=== PATIENT | male | born 1965 | race Caucasian/White ===

== ENCOUNTER 2018-09-23 17:33 | Emergency (ER) | payer MEDICARE, MEDICAID ==
[~2018-09-23] VITALS: Ht 180.3 cm; Wt 171.8 kg
[~2018-09-23 17:33] MED LIST: /CELE20CA; /DULO30CA; AMRIX; LIDO5DIS; NEUR600T; PRIL20CA; RYZOLT
[2018-09-23] MEDS ORDERED: BISO5TAB5 (17:48)
[2018-09-23] MEDS ORDERED: TRAM50TA2 (17:48)
[2018-09-23] MEDS ORDERED: CELE1CAP9 (17:48)
[2018-09-23] MEDS ORDERED: DESV50TA3 (17:48)
[2018-09-23] MEDS ORDERED: ACETAMINOPHEN 325 MG TAB PO ONE (18:15)
[2018-09-23 19:05] LABS: INFLUENZA A AMPLIFICATION POSITIVE (NEGATIVE); INFLUENZA B AMPLIFICATION NEGATIVE (NEGATIVE)
[2018-09-23] MEDS ORDERED: OSEL75CA PO (19:16)
[2018-09-23 19:26] VITALS: BP 154/89
== END 2018-09-23 19:30 | disposition home or self-care (01) ==
LOC: M ED 17:33
DX: J09.X2 Influenza due to identified novel influenza A virus with other respiratory manifestations (principal); I10 Essential (primary) hypertension; F17.200 Nicotine dependence, unspecified, uncomplicated; Z79.899 Other long term (current) drug therapy

== ENCOUNTER → 2019-04-10 | Outpatient (CLI) | payer MEDICARE, MEDICAID ==
[~2019-04-10] MED LIST changes: -/CELE20CA; -/DULO30CA; +BISO5TAB14; +CELE1CAP4; +CELE1CAP9; +CYMB1CAP5; +DESV50TA3; +OSEL75CA PO; +TRAM50TA2
--- NOTE | 2019-04-27 11:42 | ECWPNPC ---
PATIENT NAME: RASHEL HILL : 1965 GENDER: MALE VISIT DATE: 04/10/2019 DISCHARGE DATE: 04/10/19 1020 VISIT LOCKED DATE TIME: PHYSICIAN: JELENA BAILEY MD RESOURCE: JELENA BAILEY MD DISCLAIMER : THIS IS A VISIT SUMMARY EXTRACTED FROM THE [facility] CHART. IT IS NOT A COPY OF THE [facility] PROGRESS NOTE. MTDD
== END ==
LOC: M PAIN 09:00
PROVIDERS: ATTEND Anesthesiology
DX: M79.18 Myalgia, other site (principal); M54.5 Low back pain; G89.29 Other chronic pain; K21.9 Gastro-esophageal reflux disease without esophagitis; I10 Essential (primary) hypertension; E78.5 Hyperlipidemia, unspecified; Z86.59 Personal history of other mental and behavioral disorders; G47.30 Sleep apnea, unspecified; F17.210 Nicotine dependence, cigarettes, uncomplicated; E66.01 Morbid (severe) obesity due to excess calories; Z68.43 Body mass index [BMI] 50.0-59.9, adult; Z79.899 Other long term (current) drug therapy

== ENCOUNTER → 2019-04-11 | Outpatient (CLI) | payer MEDICARE ==
[~2019-04-11] MED LIST changes: -BISO5TAB14; +BISO5TAB9
--- NOTE | 2019-04-11 14:17 | REPVR ---
PROCEDURE INFORMATION: Exam: MR Lumbar Spine Without Contrast. Exam date and time: 04/11/2019 11:50 AM Clinical history: 54 years old, male; Low back pain; Additional info: Low back pain, lumbago TECHNIQUE: Imaging protocol: Multiplanar magnetic resonance images of the lumbar spine without intravenous contrast. COMPARISON: No relevant prior studies available. FINDINGS: Vertebrae: The lumbar vertebral bodies are normal in height , signal intensity and alignment.No acute fracture or dislocation is seen.There is a normal proportion of hematopoietic bone marrow and fat for this patient's age.There is no evidence of abnormal bone marrow signal intensity to suggest contusion or infection. Small hemangioma in the L1 vertebral body. Spinal epidural space: There is no evidence of epidural masses or hemorrhage. Spinal cord: The conus medullaris is normal. The cauda equina nerve roots demonstrate no crowding or displacement. L1-L2: There is no significant degenerative disc herniation.The spinal canal and neural foramina are patent and without significant stenosis. L2-L3: There is no significant degenerative disc herniation.The spinal canal and neural foramina are patent and without significant stenosis. L3-L4: There is no significant degenerative disc herniation.The spinal canal and neural foramina are patent and without significant stenosis. L4-L5: There is a mild diffuse posterior bulge causing mild effacement of the thecal sac. The facet joints demonstrate moderate degenerative narrowing and sclerosis. There is no evidence of spinal canal narrowing.There is mild bilateral foraminal stenosis. L5-S1: There is a mild diffuse posterior bulge causing mild effacement of the thecal sac. The facet joints demonstrate mild degenerative hypertrophy and sclerosis.There is no significant spinal canal or foraminal stenosis. Soft tissues: The prevertebral soft tissues appear normal. IMPRESSION: MRI of the lumbar spine reveals mild degenerative spondylitic changes and degenerative disc disease as described above. There is no evidence of spinal canal narrowing. Electronically signed by: Rodger Rosas On 04/11/2019 14:17:35 PM
== END ==
LOC: M RAD 11:05
PROVIDERS: ATTEND Anesthesiology
DX: M54.5 Low back pain (principal)

== ENCOUNTER → 2019-04-30 | Outpatient (CLI) | payer MEDICARE ==
--- NOTE | 2019-05-13 01:31 | ECWPNPC ---
PATIENT NAME: RASHEL HILL : 1965 GENDER: MALE VISIT DATE: 04/30/2019 DISCHARGE DATE: 04/30/19 1429 VISIT LOCKED DATE TIME: PHYSICIAN: TEE ROCHA RESOURCE: TEE ROCHA REASON FOR APPOINTMENT 1. REVIEW MRI PER DR Fox HISTORY OF PRESENT ILLNESS HISTORY OF PRESENT ILLNESS: HERE FORF /U AND EVALUATION OF CHRONIC LBP.REVIEWED MRI L/S SPINE DONE04/11/19.THIS IS SHOWING MULTI LEVEL DEGENERATIVE CHANGES.HE IS ACCOMPANIED WITH HIS .RATING PAIN VAS 8/10.PAIN IS WORSE OVER LEFT LOW BACK.DISCUSSED MEDICATION AND TREATMENT OPTIONS. PAIN THE PATIENT DESCRIBES THE PAIN... FALL RISK SCREENING: SCREENING :NO FALLS REPORTED IN THE LAST YEAR CURRENT MEDICATIONS TAKING DESVENLAFAXINE SUCCINATE TAKING DESVENLAFAXINE SUCCINATE TAKING BISOPROLOL FUMARATE 5 MG TABLET 1 TABLET ORALLY ONCE A DAY TAKING CELEBREX 200 MG CAPSULE 1 CAPSULE WITH FOOD ORALLY ONCE A DAY TAKING OMEPRAZOLE MAGNESIUM 20 MG TABLET DELAYED RELEASE 1 TABLET ORALLY ONCE A DAY TAKING TRAMADOL HCL 50 MG TABLET 1 TABLET NEEDED ORALLY 8PRN MDD 4 DISCONTINUED DESVENLAFAXINE SUCCINATE DISCONTINUED DESVENLAFAXINE SUCCINATE DISCONTINUED DESVENLAFAXINE SUCCINATE DISCONTINUED DESVENLAFAXINE SUCCINATE MEDICATION LIST REVIEWED AND RECONCILED WITH THE PATIENT PAST MEDICAL HISTORY ESOPHAGEAL REFLUX ESSENTIAL HYPERTENSION HYPERLIPIDEMIA MAJOR DEPRESSION-PAST OBESITY SLEEP APNEA ALLERGIES N.K.D.A. SURGICAL HISTORY RIGHT ROTATOR CUFF REPAIR 2010 FAMILY HISTORY FATHER: , DIAGNOSED WITH DIABETES MOTHER: ALIVE SIBLINGS: ALIVE SON(S): ALIVE DAUGHTER(S): ALIVE SOCIAL HISTORY GENERAL: TOBACCO USE ARE YOU A:CURRENT SMOKER HOW MANY CIGARETTES A DAY DO YOU SMOKE?6-10 ARE YOU INTERESTED IN QUITTING?THINKING ABOUT QUITTING PATIENT COUNSELED ON THE DANGERS OF TOBACCO USE AND URGED TO QUIT:04/10/2019 COUNSELED THE PATIENT ON SMOKING CESSATION, EDUCATION TIOURVCN36/04/2019 OTHERS AT HOME: SPOUSE CATS. MALE 6 MONTH RISK ASSESSMENT FOR STD MONOGOMOUS?YES HOUSING: OWNS HOME. EDUCATION LEVEL OF EDUCATION:HIGH SCHOOL GED DIET: REGULAR. LANGUAGE LANGUAGES SPOKEN:AZERI DOMESTIC VIOLENCE DO YOU FEEL SAFE IN YOUR ENVIRONMENT?YES RECREATIONAL DRUG USE DRUG USE?NO PT DENIES ANY PAST OR CURRENT DRUG USE EXERCISE: WALKS. PAIN CLINIC PFS, CLERGY, PUBLIC HEALTH REFERRALS PFS REFERRAL NEEDED?NO CLERGY REFERRAL NEEDED?NO PUBLIC HEALTH REFERRAL NEEDED?NO WAS THE PROVIDER NOTIFIED OF ANY PERTINENT INFO?NO HAS THE PATIENT BEEN EDUCATED REGARDING HIS/HER PLAN OF CARE?YES HAS THE PATIENT BEEN EDUCATED REGARDING PAIN, THE RISK FOR PAIN, THE IMPORTANCE OF EFFECTIVE PAIN MANAGEMENT, AND THE PAIN ASSESSMENT PROCESS?YES CAFFEINE CAFFEINE USE?YES DAILY DRINKS 4 CUPS A DAY AND MOUNTAIN DEW DAILY WELL ADVANCE DIRECTIVE ADVANCE DIRECTIVE DISCUSSED WITH PATIENT:YES WE DISCUSSED AND GAVE PAPERWORK BUDDHIST BUDDHIST APTIST MARITAL STATUS: . 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 HOSPITALIZATION/MAJOR DIAGNOSTIC PROCEDURE A CHILD PREUMONIA REVIEW OF SYSTEMS REVIEWED BY: PROVIDER: TEE CHRISTENSEN . CONSTITUTIONAL: ANY CHANGE IN YOUR MEDICAL CONDITION? NO . CHILLS NO . FEVER NO . INFECTION: DO YOU HAVE NEW INFECTIONS? NO . DO YOU HAVE HISTORY OF MRSA? NO . MUSCULOSKELETAL: ANY NEW PATTERNS OF PAIN OR NUMBNESS? YES . GASTROENTEROLOGY: ANY NEW CHANGE IN BOWEL CONTROL? NO . GENITOURINARY: ANY NEW CHANGE IN BLADDER CONTROL? NO . IS THERE A CHANCE YOU COULD BE ? NO . HEMATOLOGY/LYMPH: DO YOU TAKE ANY BLOOD THINNERS? (FOR EXAMPLE- COUMADIN, PLAVIX, AGGRENOX, PLATEL, PRADAXA, OR XARELTO) NO . WHEN WAS YOUR LAST DOSE? DATE: TIME: . NEUROLOGY: HAVE YOU FALLEN IN THE PAST 12 MONTHS? YES THIS PAST SUMMER LATE FEBRUARY LEFT LEG GAVE OUT . ANY NEW EXTREMITY NUMBNESS OR WEAKNESS? NO . CARDIOLOGY: DO YOU HAVE A PACEMAKER OR DEFIBRILLATOR? NO . RESPIRATORY: HAVE YOU BEEN SICK IN THE PAST WEEK? NO . FEVER NO . FLU LIKE SYMPTOMS? NO . COUGH NO . INTEGUMENTARY: DO YOU HAVE ANY RASHES OR OPEN SORES? NO . ALLERGIC/IMMUNO: ARE YOU ALLERGIC TO IV DYE? NO . ANY NEW ALLERGIES? NO . PSYCHIATRIC: DO YOU HAVE THOUGHTS OF HURTING YOURSELF OR SOMEONE ELSE? NO . ARE YOU ABUSED, NEGLECTED, OR IN AN UNSAFE ENVIRONMENT? NO . ENDOCRINOLOGY: ARE YOU DIABETIC? NO . OTHER: DO YOU NEED ANY PRESCRIPTIONS? NO . IF YES, PLEASE LIST: ____ . ANY NEW PROBLEMS WITH YOUR MEDICATIONS? NO . WHEN DID YOU LAST EAT? ____ . WHEN DID YOU LAST DRINK? ____ . WHAT DID YOU LAST DRINK? ____ . NAME OF PERSON DRIVING YOU HOME? ____ . DO YOU HAVE ANY OTHER QUESTIONS OR CONCERNS PT STATES HE HAS PRICLY AND NUMBNESS DOWN THE LEGS . VITAL SIGNS WT 372.0 LBS, HT 70 IN, BMI 53.37 INDEX, BP 168/81 MM HG, HR 65 /MIN, RR 18 /MIN, TEMP 97.5 F, OXYGEN SAT % 96%, NA INITIALS AW 1330, REVIEWED BY: KG. EXAMINATION GENERAL EXAMINATION: LUNGS: LUNG SOUNDS ARE CLEAR . HEART: HEART RATE REGULAR . MUSCULOSKELETAL:*, MUSCLE STRENGTH TESTING 5/5 BILATERAL LOWER EXTREMITIES., ,PALPATION: POSITIVE FOR PAIN OVER L/S SPINE. POSITIVE FOR PAIN OVER L/S PARSPINALS.SPECIFIC POINT TENDERNESS OVER BILAT L4/5-L5/S1 LUMBR FACETS WITH FACET LOADING L>R. DIAGNOSTIC:MRI L/S SPINE -04/11/19. ASSESSMENTS LUMBAR DEGENERATIVE DISC DISEASE - M51.36 (PRIMARY) TREATMENT LUMBAR DEGENERATIVE DISC DISEASE START GABAPENTIN CAPSULE, 100 MG, 1 TO 2 CAPSULES DIRECTED, ORALLY, 1 TAB AM/PM X3 DAYS THEN 1 CAP IN AM,2 HS X 3 DAYS THEN 2 ANN,2 PM, 30 DAY(S), 120, REFILLS 2 NOTES: BILAT L4/5-L5/S1 LFB THER. PROCEDURE CODES FA211 ESTABILISHED PATIENT [facility] FACILITY CHARGE DISPOSITION & COMMUNICATION FOLLOW UP POST (REASON: BILAT L4/5-L5/S1 LFB THER) ELECTRONICALLY SIGNED BY AMPARO WICK ON 05/12/2019 AT 03:45 PM EST DISCLAIMER : THIS IS A VISIT SUMMARY EXTRACTED FROM THE [employer] CHART. IT IS NOT A COPY OF THE [employer] PROGRESS NOTE. ROMAIN
== END ==
LOC: M PAIN 13:30
PROVIDERS: ATTEND Nurse Practitioner Family
DX: M51.36 Other intervertebral disc degeneration, lumbar region (principal); G89.29 Other chronic pain; K21.9 Gastro-esophageal reflux disease without esophagitis; I10 Essential (primary) hypertension; E78.5 Hyperlipidemia, unspecified; G47.30 Sleep apnea, unspecified; F17.210 Nicotine dependence, cigarettes, uncomplicated; E66.01 Morbid (severe) obesity due to excess calories; Z68.43 Body mass index [BMI] 50.0-59.9, adult; Z86.59 Personal history of other mental and behavioral disorders; Z79.899 Other long term (current) drug therapy

== ENCOUNTER → 2019-06-22 | Outpatient (CLI) | payer MEDICARE ==
[~2019-06-22] MED LIST changes: +BUPIVACAINE HCL 0.25% 30 ML VIAL As Ordered ONE; +ISOVUE-M 300 61% 15ML VIAL (Q9967) As Ordered ONE; +LIDOCAINE 1% SDV INJ 30 ML VIAL As Ordered ONE; +NORCO, ANEXSIA 5/325MG TABLET (HYDROcodone/ACETAMINOPHEN) As Ordered ONE; +TRIAMCINOLONE ACETONIDE SUSP 40 MG/ML VIAL (J3301) As Ordered ONE; +diazePAM 5 MG TAB As Ordered ONE
--- NOTE | 2019-06-22 13:28 | REP ---
Partial lumbar spine series: Four views . History: Injection procedure for pain. 24 seconds of fluoroscopy time is reported. Findings: A sequence of four fluoroscopically obtained last image hold procedural spot radiographs of the lumbar spine document needle position and contrast injection associated with injection procedure. Electronically Signed by Santhosh Vital MD 06/22/2019 01:19 P
--- NOTE | 2019-06-24 02:31 | ECWPNPC ---
PATIENT NAME: RASHEL HILL : 1965 GENDER: MALE VISIT DATE: 06/22/2019 DISCHARGE DATE: 06/22/19 1344 VISIT LOCKED DATE TIME: PHYSICIAN: JELENA BAILEY MD RESOURCE: JELENA BAILEY MD REASON FOR APPOINTMENT 1. BILAT L4/5-L5/S1 LFB THER HISTORY OF PRESENT ILLNESS HISTORY OF PRESENT ILLNESS: PAIN THE PATIENT DESCRIBES THE PAIN... FALL RISK SCREENING: SCREENING :NO FALLS REPORTED IN THE LAST YEAR CURRENT MEDICATIONS TAKING DESVENLAFAXINE SUCCINATE , NOTES: 06/22/19799 TAKING DESVENLAFAXINE SUCCINATE , NOTES: DUPLICATE ORDER TAKING BISOPROLOL FUMARATE 5 MG TABLET 1 TABLET ORALLY ONCE A DAY, NOTES: 06/21/191999 TAKING CELEBREX 200 MG CAPSULE 1 CAPSULE WITH FOOD ORALLY ONCE A DAY, NOTES: 06/22/19799 TAKING OMEPRAZOLE MAGNESIUM 20 MG TABLET DELAYED RELEASE 1 TABLET ORALLY ONCE A DAY, NOTES: 06/22/19799 TAKING TRAMADOL HCL 50 MG TABLET 1 TABLET NEEDED ORALLY 8PRN MDD 4, NOTES: 06/22/19799 TAKING GABAPENTIN 100 MG CAPSULE 1 TO 2 CAPSULES DIRECTED ORALLY 1 TAB AM/PM X3 DAYS THEN 1 CAP IN AM,2 HS X 3 DAYS THEN 2 ANN,2 PM, NOTES: 06/22/19799 MEDICATION LIST REVIEWED AND RECONCILED WITH THE PATIENT PAST MEDICAL HISTORY ESOPHAGEAL REFLUX ESSENTIAL HYPERTENSION HYPERLIPIDEMIA MAJOR DEPRESSION-PAST OBESITY SLEEP APNEA ALLERGIES N.K.D.A. SURGICAL HISTORY RIGHT ROTATOR CUFF REPAIR 2010 FAMILY HISTORY FATHER: , DIAGNOSED WITH DIABETES MOTHER: ALIVE SIBLINGS: ALIVE SON(S): ALIVE DAUGHTER(S): ALIVE SOCIAL HISTORY GENERAL: TOBACCO USE ARE YOU A:CURRENT SMOKER ARE YOU INTERESTED IN QUITTING?NOT READY TO QUIT HOW MANY CIGARETTES A DAY DO YOU SMOKE?6-10 PATIENT COUNSELED ON THE DANGERS OF TOBACCO USE AND URGED TO QUIT:04/10/2019 OTHERS AT HOME: SPOUSE CATS. MALE 6 MONTH RISK ASSESSMENT FOR STD MONOGOMOUS?YES HOUSING: OWNS HOME. EDUCATION LEVEL OF EDUCATION:HIGH SCHOOL GED DIET: REGULAR. LANGUAGE LANGUAGES SPOKEN:SWEDISH DOMESTIC VIOLENCE DO YOU FEEL SAFE IN YOUR ENVIRONMENT?YES RECREATIONAL DRUG USE DRUG USE?NO PT DENIES ANY PAST OR CURRENT DRUG USE EXERCISE: WALKS. LEARNING BARRIERS / SPECIAL NEEDS CHANGE FROM LAST VISIT?NO BARRIERS TO LEARNING?NO HEARING IMPAIRED?YES :HEARING AIDES VISION IMPAIRED?YES :CORRECTIVE LENSES COGNITIVELY IMPAIRED?NO READINESS TO LEARN?YES LEARNING PREFERENCES?NO LEARNING CAPABILITIES PRESENT?YES EMOTIONAL BARRIERS?NO SPECIAL DEVICES?NO IRONWORKER HELPER SHOP NEEDED?NO PAIN CLINIC PFS, CLERGY, PUBLIC HEALTH REFERRALS PFS REFERRAL NEEDED?NO CLERGY REFERRAL NEEDED?NO PUBLIC HEALTH REFERRAL NEEDED?NO WAS THE PROVIDER NOTIFIED OF ANY PERTINENT INFO?NO HAS THE PATIENT BEEN EDUCATED REGARDING HIS/HER PLAN OF CARE?YES HAS THE PATIENT BEEN EDUCATED REGARDING PAIN, THE RISK FOR PAIN, THE IMPORTANCE OF EFFECTIVE PAIN MANAGEMENT, AND THE PAIN ASSESSMENT PROCESS?YES LATEX QUESTIONNAIRE LATEX ALLERGY : HAVE YOU EVER DEVELOPED ANY TYPE OF REACTION AFTER HANDLING LATEX PRODUCTS SUCH RUBBER GLOVES, CONDOMS, DIAPHRAGMS, BALLOONS, SOCKS, OR UNDERWEAR?NO LATEX ALLERGY : HAVE YOU EVER DEVELOPED ANY TYPE OF REACTION DURING OR AFTER DENTAL APPOINTMENT, VAGINAL/RECTAL EXAMINATION, SURGICAL PROCEDURE, OR ANY OTHER EXPOSURE?NO LATEX RISK : HAVE YOU EVER HAD ANY DIFFICULTY BREATHING OR HIVES AFTER EATING OR HANDLING ANY FRUITS, OR VEGETABLES; SUCH KIWI, BANANAS, STONE FRUITS, OR CHESTNUTSNO LATEX RISK : DO YOU HAVE A PREVIOUS PERSONAL HISTORY OF MORE THAN NINE SURGERIES, SPINA BIFIDA, OR REPEATED CATHERIZATIONS? NO LATEX RISK : ARE YOU FREQUENTLY EXPOSED TO LATEX PRODUCTS IN YOUR OCCUPATION?NO DATE ASKED : 06/12/2019 CAFFEINE CAFFEINE USE?YES DAILY DRINKS 4 CUPS A DAY AND MOUNTAIN DEW DAILY WELL ADVANCE DIRECTIVE ADVANCE DIRECTIVE DISCUSSED WITH PATIENT:YES WE DISCUSSED AND GAVE PAPERWORK ANABAPTIST ANABAPTIST APTIST MARITAL STATUS: . 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 06/12/19 PRE PROCEDURE SCREENING DONE EM. HOSPITALIZATION/MAJOR DIAGNOSTIC PROCEDURE A CHILD PREUMONIA REVIEW OF SYSTEMS REVIEWED BY: PROVIDER: . CONSTITUTIONAL: ANY CHANGE IN YOUR MEDICAL CONDITION? NO . CHILLS NO . FEVER NO . INFECTION: DO YOU HAVE NEW INFECTIONS? NO . DO YOU HAVE HISTORY OF MRSA? NO . MUSCULOSKELETAL: ANY NEW PATTERNS OF PAIN OR NUMBNESS? NO . GASTROENTEROLOGY: ANY NEW CHANGE IN BOWEL CONTROL? NO . GENITOURINARY: ANY NEW CHANGE IN BLADDER CONTROL? NO . IS THERE A CHANCE YOU COULD BE ? NO . HEMATOLOGY/LYMPH: DO YOU TAKE ANY BLOOD THINNERS? (FOR EXAMPLE- COUMADIN, PLAVIX, AGGRENOX, PLATEL, PRADAXA, OR XARELTO) NO . WHEN WAS YOUR LAST DOSE? DATE: TIME: . NEUROLOGY: HAVE YOU FALLEN IN THE PAST 12 MONTHS? YES PT REPORTS HE SLIPPED DOWN A FEW STAIRS THIS SUMMER, NO ED VISIT OR XRAYS. PT DENIES INJURY, BUT STATES HE STUMBLES FREQUENTLY. . ANY NEW EXTREMITY NUMBNESS OR WEAKNESS? NO . CARDIOLOGY: DO YOU HAVE A PACEMAKER OR DEFIBRILLATOR? NO . RESPIRATORY: HAVE YOU BEEN SICK IN THE PAST WEEK? NO . FEVER NO . FLU LIKE SYMPTOMS? NO . COUGH NO . INTEGUMENTARY: DO YOU HAVE ANY RASHES OR OPEN SORES? NO . ALLERGIC/IMMUNO: ARE YOU ALLERGIC TO IV DYE? NO . ANY NEW ALLERGIES? NO . PSYCHIATRIC: DO YOU HAVE THOUGHTS OF HURTING YOURSELF OR SOMEONE ELSE? NO . ARE YOU ABUSED, NEGLECTED, OR IN AN UNSAFE ENVIRONMENT? NO . ENDOCRINOLOGY: ARE YOU DIABETIC? NO . OTHER: DO YOU NEED ANY PRESCRIPTIONS? NO . IF YES, PLEASE LIST: ____ . ANY NEW PROBLEMS WITH YOUR MEDICATIONS? NO . WHEN DID YOU LAST EAT? ____06/21/19 2130 . WHEN DID YOU LAST DRINK? ____06/22/19 0800 . WHAT DID YOU LAST DRINK? ____WATER . NAME OF PERSON DRIVING YOU HOME? ____SON BELKIS . DO YOU HAVE ANY OTHER QUESTIONS OR CONCERNS NO . VITAL SIGNS WT 366.2 LBS, HT 70 IN, BMI 52.54 INDEX, BP 149/76 MM HG, HR 71 /MIN, RR 20 /MIN, TEMP 96.4 F, OXYGEN SAT % 94%, SAFE IN ENV? (Y/N) YES, NA INITIALS SC 10:20, REVIEWED BY: MIKEY. ASSESSMENTS SPONDYLOSIS WITHOUT MYELOPATHY OR RADICULOPATHY, LUMBAR REGION - M47.816 (PRIMARY) SPONDYLOSIS WITHOUT MYELOPATHY OR RADICULOPATHY, LUMBOSACRAL REGION - M47.817 PROCEDURES PN LUMBAR FACET BLOCK THERAPEUTIC PRE PROCEDURE DIAGNOSIS LUMBAR SPONDYLOSIS, LUMBOSACRAL SPONDYLOSIS POST PROCEDURE DIAGNOSIS LUMBAR SPONDYLOSIS, LUMBOSACRAL SPONDYLOSIS PROCEDURE BILATERAL L4-L5 AND L5-S1 LUMBAR FACET THERAPEUTIC BLOCK SURGEON DR. JELENA BAILEY CHEMICAL DEPENDENCY COUNSELOR NONE ANESTHESIA LOCAL PRE PROCEDURE NOTE THE PATIENT HAS A HISTORY OF CHRONIC LOW BACK PAIN. I EVALUATED THE PATIENT AND REVIEWED THE CHART. I WENT OVER THE RISKS, ALTERNATIVES, AND BENEFITS ASSOCIATED WITH THIS PROCEDURE. THE PATIENT WOULD LIKE TO PROCEED AND GIVES CONSENT TO PERFORM THE PROCEDURE. THE PATIENT DENIES UNEXPLAINABLE WEIGHT LOSS, FEVER, CHILLS, OR NEW CHANGES IN URINARY OR BOWEL CONTROL DESCRIPTION OF PROCEDURE THE PATIENT WAS BROUGHT TO THE PROCEDURE ROOM AND PLACED IN THE PRONE POSITION. THE LUMBOSACRAL AREA WAS CLEANED WITH CHLORAPREP SOLUTION AND DRAPED ASEPTICALLY. THE PROCEDURE WAS DONE UNDER STERILE CONDITIONS. I CHECKED LATERALITY AND THE LEVEL WHERE THE PROCEDURE WAS GOING TO BE PERFORMED WITH THE PATIENT AND THE SUPPORTING STAFF AT THE MOMENT OF THE TIME OUT IN THE PROCEDURE ROOM. UNDER FLUOROSCOPIC GUIDANCE, THE TARGET POINT WAS SELECTED AT THE RIGHT AND LEFT L4-L5 AND RIGHT AND LEFT L5-S1 FACET JOINTS. TARGET POINT WAS SELECTED AFTER LATERAL ROTATION AND TILT OF THE MAGNIFIER OF THE C-ARM. LIDOCAINE 0.5% WAS USED TO NUMB THE SKIN AND THE SUBCUTANEOUS TISSUE BELOW IT. SPINAL NEEDLES, 22-GAUGE, WERE ADVANCED UNDER FLUOROSCOPIC GUIDANCE AND FOLLOWING PATIENT FEEDBACK UNTIL THE TARGETS WERE TOUCHED. THE POSITION OF THE NEEDLES WAS VERIFIED WITH AP AND LATERAL VIEWS. AFTER PROPER POSITION OF THE NEEDLES WAS ACHIEVED, ISOVUE-M DYE 30% 0.1 ML WAS INJECTED SHOWING ADEQUATE SPREAD OF THE DYE. THEN A SOLUTION OF 1.9 ML OF BUPIVACAINE 0.125% OF KENALOG 10 MG WAS INJECTED AT EACH SITE. THERE WAS NO EVIDENCE OF BLOOD, PARESTHESIA OR CEREBROSPINAL FLUID DURING THE PROCEDURE. THE PATIENT WAS SENT TO THE RECOVERY ROOM. THE PATIENT WAS MOVING THE EXTREMITIES AND DOING WELL. THERE WAS NO COMPLICATION DURING THE PROCEDURE. FLUOROSCOPY TIME WAS 24 SECONDS POST PROCEDURE NOTE I AM LOOKING FOR LONG LASTING PAIN RELIEF WITH THIS INTERVENTION. THE PATIENT WILL BE SEEN IN A FOLLOW UP IN THE NEXT FEW WEEKS. INSTRUCTIONS WERE GIVEN, QUESTIONS WERE ANSWERED, AND THE PATIENT EXPRESSED UNDERSTANDING AND AGREES WITH THE PLAN. I, YANN QUARLES, DOCUMENTED THE ABOVE INFORMATION ACTING A SCRIBE FOR DR. BAILEY. I HAVE REVIEWED THE ABOVE DOCUMENT, WRITTEN BY YANN QUARLES SCRIBAnahy AND I VERIFY THAT IT IS ACCURATE. DIAGNOSTIC IMAGING [facility] FACET BLOCK (PAIN)[id number] PROCEDURE CODES 11030 INJ PARAVERT F JNT L/S 1 LEV, MODIFIERS: 50 [id number] INJ PARAVERT F JNT L/S 2 LEV, MODIFIERS: 50 [id number] RADXPS IN END [id number] PXD DISPOSITION & COMMUNICATION FOLLOW UP 3 WEEKS ELECTRONICALLY SIGNED BY JELENA BAILEY MD, ON 06/23/2019 AT 05:22 PM EST DISCLAIMER : THIS IS A VISIT SUMMARY EXTRACTED FROM THE [employer] CHART. IT IS NOT A COPY OF THE [employer] PROGRESS NOTE. MTDD
== END ==
LOC: M PAIN 09:45
PROVIDERS: ATTEND Anesthesiology
DX: M47.816 Spondylosis without myelopathy or radiculopathy, lumbar region (principal); M47.817 Spondylosis without myelopathy or radiculopathy, lumbosacral region; K21.9 Gastro-esophageal reflux disease without esophagitis; I10 Essential (primary) hypertension; E78.5 Hyperlipidemia, unspecified; Z86.59 Personal history of other mental and behavioral disorders; G47.30 Sleep apnea, unspecified; F17.210 Nicotine dependence, cigarettes, uncomplicated; E66.01 Morbid (severe) obesity due to excess calories; Z68.43 Body mass index [BMI] 50.0-59.9, adult; Z79.899 Other long term (current) drug therapy
CPT/HCPCS: 64493; 64494; J3301; Q9967

== ENCOUNTER → 2019-08-27 | Outpatient (CLI) | payer MEDICARE ==
[~2019-08-27] MED LIST changes: +BISO5TAB14; -BISO5TAB9; -BUPIVACAINE HCL 0.25% 30 ML VIAL As Ordered ONE; -ISOVUE-M 300 61% 15ML VIAL (Q9967) As Ordered ONE; -LIDOCAINE 1% SDV INJ 30 ML VIAL As Ordered ONE; -NORCO, ANEXSIA 5/325MG TABLET (HYDROcodone/ACETAMINOPHEN) As Ordered ONE; -TRIAMCINOLONE ACETONIDE SUSP 40 MG/ML VIAL (J3301) As Ordered ONE; -diazePAM 5 MG TAB As Ordered ONE
--- NOTE | 2019-09-15 01:34 | ECWPNPC ---
PATIENT NAME: RASHEL HILL : 1965 GENDER: MALE VISIT DATE: 08/27/2019 DISCHARGE DATE: 08/27/19 1525 VISIT LOCKED DATE TIME: PHYSICIAN: TEE ROCHA RESOURCE: TEE ROCHA REASON FOR APPOINTMENT 1. POST BILAT FACET HISTORY OF PRESENT ILLNESS HISTORY OF PRESENT ILLNESS: HERE FOR POST PROCEDURE FOLLOW-UP. HAD BILATERAL L4-5, L5-S1, THERAPEUTIC BLOCK ON 06/22/2019. REPORTS MARKED REDUCTION OF GREATER THAN 80% FOR OVER 2 MONTHS AND THEN BEGAN TO TO DEVELOP A NEW PAIN A FEW WEEKS AGO. PAIN IS LOCATED IN THE LOWER SPINE WITH RADIATION INTO THE LUMBAR PARASPINAL REGION. PAIN IS AGGRAVATED WITH RANGE OF JOINT MOTION OF THE SPINE. DENIES PRECIPITATING EVENT. RATING PAIN LEVEL A 8-9/10 VAS. STOPPED TAKING GABAPENTIN A MONTH AGO HE RAN OUT AND HAD MISSED APPOINTMENTS HERE AND WASN'T ABLE TO GET A REFILL. PAIN THE PATIENT DESCRIBES THE PAIN... FALL RISK SCREENING: SCREENING :NO FALLS REPORTED IN THE LAST YEAR CURRENT MEDICATIONS TAKING DESVENLAFAXINE SUCCINATE 1 TABLET ORAL DAILY TAKING BISOPROLOL FUMARATE 5 MG TABLET 1 TABLET ORALLY ONCE A DAY TAKING CELEBREX 200 MG CAPSULE 1 CAPSULE WITH FOOD ORALLY ONCE A DAY TAKING OMEPRAZOLE MAGNESIUM 20 MG TABLET DELAYED RELEASE 1 TABLET ORALLY ONCE A DAY TAKING TRAMADOL HCL 50 MG TABLET 1 TABLET NEEDED ORALLY MDD 4 TAKING GABAPENTIN 100 MG CAPSULE 1 TO 2 CAPSULES DIRECTED ORALLY 2 IN AM, 2 PM NOT-TAKING DESVENLAFAXINE SUCCINATE MEDICATION LIST REVIEWED AND RECONCILED WITH THE PATIENT PAST MEDICAL HISTORY ESOPHAGEAL REFLUX ESSENTIAL HYPERTENSION HYPERLIPIDEMIA MAJOR DEPRESSION-PAST OBESITY SLEEP APNEA ALLERGIES N.K.D.A. SURGICAL HISTORY RIGHT ROTATOR CUFF REPAIR 2010 FAMILY HISTORY FATHER: , DIAGNOSED WITH DIABETES MOTHER: ALIVE SIBLINGS: ALIVE SON(S): ALIVE DAUGHTER(S): ALIVE SOCIAL HISTORY GENERAL: TOBACCO USE ARE YOU A:CURRENT SMOKER HOW MANY CIGARETTES A DAY DO YOU SMOKE?6-10 ARE YOU INTERESTED IN QUITTING?NOT READY TO QUIT PATIENT COUNSELED ON THE DANGERS OF TOBACCO USE AND URGED TO QUIT:04/10/2019 OTHERS AT HOME: SPOUSE CATS. MALE 6 MONTH RISK ASSESSMENT FOR STD MONOGOMOUS?YES HOUSING: OWNS HOME. EDUCATION LEVEL OF EDUCATION:HIGH SCHOOL GED DIET: REGULAR. LANGUAGE LANGUAGES SPOKEN:DOMINICAN DOMESTIC VIOLENCE DO YOU FEEL SAFE IN YOUR ENVIRONMENT?YES RECREATIONAL DRUG USE DRUG USE?NO PT DENIES ANY PAST OR CURRENT DRUG USE EXERCISE: WALKS. LEARNING BARRIERS / SPECIAL NEEDS CHANGE FROM LAST VISIT?NO BARRIERS TO LEARNING?NO HEARING IMPAIRED?YES VISION IMPAIRED?YES COGNITIVELY IMPAIRED?NO :HEARING AIDES :CORRECTIVE LENSES READINESS TO LEARN?YES LEARNING PREFERENCES?NO LEARNING CAPABILITIES PRESENT?YES EMOTIONAL BARRIERS?NO SPECIAL DEVICES?NO MAILROOM MANAGER NEEDED?NO PAIN CLINIC PFS, CLERGY, PUBLIC HEALTH REFERRALS PFS REFERRAL NEEDED?NO CLERGY REFERRAL NEEDED?NO PUBLIC HEALTH REFERRAL NEEDED?NO WAS THE PROVIDER NOTIFIED OF ANY PERTINENT INFO?NO HAS THE PATIENT BEEN EDUCATED REGARDING HIS/HER PLAN OF CARE?YES HAS THE PATIENT BEEN EDUCATED REGARDING PAIN, THE RISK FOR PAIN, THE IMPORTANCE OF EFFECTIVE PAIN MANAGEMENT, AND THE PAIN ASSESSMENT PROCESS?YES LATEX QUESTIONNAIRE LATEX ALLERGY : HAVE YOU EVER DEVELOPED ANY TYPE OF REACTION AFTER HANDLING LATEX PRODUCTS SUCH RUBBER GLOVES, CONDOMS, DIAPHRAGMS, BALLOONS, SOCKS, OR UNDERWEAR?NO LATEX ALLERGY : HAVE YOU EVER DEVELOPED ANY TYPE OF REACTION DURING OR AFTER DENTAL APPOINTMENT, VAGINAL/RECTAL EXAMINATION, SURGICAL PROCEDURE, OR ANY OTHER EXPOSURE?NO DATE ASKED : 06/12/2019 LATEX RISK : HAVE YOU EVER HAD ANY DIFFICULTY BREATHING OR HIVES AFTER EATING OR HANDLING ANY FRUITS, OR VEGETABLES; SUCH KIWI, BANANAS, STONE FRUITS, OR CHESTNUTSNO LATEX RISK : DO YOU HAVE A PREVIOUS PERSONAL HISTORY OF MORE THAN NINE SURGERIES, SPINA BIFIDA, OR REPEATED CATHERIZATIONS? NO LATEX RISK : ARE YOU FREQUENTLY EXPOSED TO LATEX PRODUCTS IN YOUR OCCUPATION?NO CAFFEINE CAFFEINE USE?YES DAILY DRINKS 4 CUPS A DAY AND [place] DEW DAILY WELL ADVANCE DIRECTIVE ADVANCE DIRECTIVE DISCUSSED WITH PATIENT:YES WE DISCUSSED AND GAVE PAPERWORK MORMONISM MORMONISM APTIST MARITAL STATUS: . 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 HOSPITALIZATION/MAJOR DIAGNOSTIC PROCEDURE A CHILD PREUMONIA REVIEW OF SYSTEMS REVIEWED BY: PROVIDER: TEE CHRISTENSEN . CONSTITUTIONAL: ANY CHANGE IN YOUR MEDICAL CONDITION? NO . CHILLS NO . FEVER NO . INFECTION: DO YOU HAVE NEW INFECTIONS? NO . DO YOU HAVE HISTORY OF MRSA? NO . MUSCULOSKELETAL: ANY NEW PATTERNS OF PAIN OR NUMBNESS? YES . GASTROENTEROLOGY: ANY NEW CHANGE IN BOWEL CONTROL? NO . GENITOURINARY: ANY NEW CHANGE IN BLADDER CONTROL? NO . IS THERE A CHANCE YOU COULD BE ? NO . HEMATOLOGY/LYMPH: DO YOU TAKE ANY BLOOD THINNERS? (FOR EXAMPLE- COUMADIN, PLAVIX, AGGRENOX, PLATEL, PRADAXA, OR XARELTO) NO . WHEN WAS YOUR LAST DOSE? DATE: TIME: . NEUROLOGY: HAVE YOU FALLEN IN THE PAST 12 MONTHS? YES . ANY NEW EXTREMITY NUMBNESS OR WEAKNESS? NO . CARDIOLOGY: DO YOU HAVE A PACEMAKER OR DEFIBRILLATOR? NO . RESPIRATORY: HAVE YOU BEEN SICK IN THE PAST WEEK? NO . FEVER NO . FLU LIKE SYMPTOMS? NO . COUGH NO . INTEGUMENTARY: DO YOU HAVE ANY RASHES OR OPEN SORES? NO . ALLERGIC/IMMUNO: ARE YOU ALLERGIC TO IV DYE? NO . ANY NEW ALLERGIES? NO . PSYCHIATRIC: DO YOU HAVE THOUGHTS OF HURTING YOURSELF OR SOMEONE ELSE? NO . ARE YOU ABUSED, NEGLECTED, OR IN AN UNSAFE ENVIRONMENT? NO . ENDOCRINOLOGY: ARE YOU DIABETIC? NO . OTHER: DO YOU NEED ANY PRESCRIPTIONS? YES . IF YES, PLEASE LIST: GABAPENTIN . ANY NEW PROBLEMS WITH YOUR MEDICATIONS? NO . WHEN DID YOU LAST EAT? ____ . WHEN DID YOU LAST DRINK? ____ . WHAT DID YOU LAST DRINK? ____ . NAME OF PERSON DRIVING YOU HOME? ____ . DO YOU HAVE ANY OTHER QUESTIONS OR CONCERNS NO . VITAL SIGNS WT 365.0 LBS, HT 70 IN, BMI 52.37 INDEX, BP 185/93 MM HG, REPEAT BP 159/85 MM HG, HR 63 /MIN, RR 18 /MIN, TEMP 97.0 F, OXYGEN SAT % 99%, NA INITIALS AW 1357, REVIEWED BY: LS. EXAMINATION GENERAL EXAMINATION: LUNGS: LUNG SOUNDS ARE CLEAR . HEART: HEART RATE REGULAR . MUSCULOSKELETAL:*, MUSCLE STRENGTH TESTING 5/5 BILATERAL LOWER EXTREMITIES., ,PALPATION: POSITIVE FOR PAIN OVER L/S SPINE. POSITIVE FOR PAIN OVER L/S PARSPINALS. TRIGGER POINTS: OVER BILAT L4/5-L5/S1 LUMBR PARASPINALS.PAIN IN THIS REGION AGGREVATED WITH ROJM SPINE.. DIAGNOSTIC:MRI L/S SPINE -04/11/19. ASSESSMENTS MYALGIA, OTHER SITE - M79.18 (PRIMARY) SPONDYLOSIS WITHOUT MYELOPATHY OR RADICULOPATHY, LUMBAR REGION - M47.816 TREATMENT MYALGIA, OTHER SITE REFILL GABAPENTIN CAPSULE, 300 MG, 1 CAP, ORALLY, 1 AM AND PM, 30 DAYS, 60, REFILLS 2 START TIZANIDINE HCL TABLET, 4 MG, 1 TABLET NEEDED, ORALLY, Q8H PRN PAIN, 30 DAYS, 45, REFILLS 1 NOTES: RESTART GABAPENTIN 300 MG 1 CAPSULE AT NIGHT TIME 3-4 DAYS, THEN INCREASE TO 1 CAPSULE MORNING AND NIGHT. MAY USE, TIZANIDINE 4 MG EVERY 8 HOURS WHEN NECESSARY FOR SEVERE MUSCLE SPASM PAIN.TPI BILAT LUMBAR PARASPINAL,TRIGGER POINT INJECTION, TRIGGER POINT INJECTIONS MATERIAL WAS PUBLISHED TO PORTAL. OTHERS NOTES: TRIGGER POINT INJECTION MATERIAL WAS PRINTED,TRIGGER POINT INJECTION MATERIAL WAS PRINTED,TRIGGER POINT INJECTION MATERIAL WAS PRINTED. PREVENTIVE MEDICINE PAIN CLINIC TEACHING: MEDICATIONS NEW MEDICATION TIZANIDINE INSTRUCTIONS REVIEWED WITH PT. VERBALIZED UNDERSTANDING.. PROCEDURE TEACHING PRE PROCEDURE INSTRUCTIONS REVIEWED WITH PT. VERBALIZED UNDERSTANDING.. PROCEDURE CODES FA211 ESTABILISHED PATIENT [facility] CHARGE DISPOSITION & COMMUNICATION FOLLOW UP POST (REASON: TPI BILAT LUMBAR PARASPINAL) ELECTRONICALLY SIGNED BY AMPARO WICK ON 09/14/2019 AT 03:39 PM EDT DISCLAIMER : THIS IS A VISIT SUMMARY EXTRACTED FROM THE [employer] CHART. IT IS NOT A COPY OF THE [employer] PROGRESS NOTE. ROMAIN
== END ==
LOC: M PAIN 14:00
PROVIDERS: ATTEND Nurse Practitioner Family
DX: M79.18 Myalgia, other site (principal); M47.816 Spondylosis without myelopathy or radiculopathy, lumbar region; K21.9 Gastro-esophageal reflux disease without esophagitis; I10 Essential (primary) hypertension; E78.5 Hyperlipidemia, unspecified; G47.30 Sleep apnea, unspecified; Z68.43 Body mass index [BMI] 50.0-59.9, adult; F17.210 Nicotine dependence, cigarettes, uncomplicated; Z79.891 Long term (current) use of opiate analgesic; Z79.899 Other long term (current) drug therapy

== ENCOUNTER → 2019-09-29 | Outpatient (CLI) | payer MEDICARE ==
[~2019-09-29] MED LIST changes: +BUPIVACAINE HCL 0.25% 30 ML VIAL As Ordered ONE; +NORCO, ANEXSIA 5/325MG TABLET (HYDROcodone/ACETAMINOPHEN) As Ordered ONE; +TRIAMCINOLONE ACETONIDE SUSP 40 MG/ML VIAL (J3301) As Ordered ONE; +diazePAM 5 MG TAB As Ordered ONE
--- NOTE | 2019-10-03 03:27 | ECWPNPC ---
PATIENT NAME: RASHEL HILL : 1965 GENDER: MALE VISIT DATE: 09/29/2019 DISCHARGE DATE: 09/29/19 1208 VISIT LOCKED DATE TIME: PHYSICIAN: JELENA BAILEY MD RESOURCE: JELENA BAILEY MD REASON FOR APPOINTMENT 1. TPI BILAT LUMBAR PARASPINAL HISTORY OF PRESENT ILLNESS HISTORY OF PRESENT ILLNESS: PAIN THE PATIENT DESCRIBES THE PAIN... FALL RISK SCREENING: SCREENING :NO FALLS REPORTED IN THE LAST YEAR CURRENT MEDICATIONS TAKING DESVENLAFAXINE SUCCINATE 1 TABLET ORAL DAILY TAKING BISOPROLOL FUMARATE 5 MG TABLET 1 TABLET ORALLY ONCE A DAY TAKING CELEBREX 200 MG CAPSULE 1 CAPSULE WITH FOOD ORALLY ONCE A DAY TAKING TRAMADOL HCL 50 MG TABLET 1 TABLET NEEDED ORALLY MDD 4 TAKING GABAPENTIN 300 MG CAPSULE 1 CAP ORALLY 1 AM AND PM TAKING TIZANIDINE HCL 4 MG TABLET 1 TABLET NEEDED ORALLY Q8H PRN PAIN NOT-TAKING OMEPRAZOLE MAGNESIUM 20 MG TABLET DELAYED RELEASE 1 TABLET ORALLY ONCE A DAY NOT-TAKING DESVENLAFAXINE SUCCINATE MEDICATION LIST REVIEWED AND RECONCILED WITH THE PATIENT PAST MEDICAL HISTORY ESOPHAGEAL REFLUX ESSENTIAL HYPERTENSION HYPERLIPIDEMIA MAJOR DEPRESSION-PAST OBESITY SLEEP APNEA ALLERGIES N.K.D.A. SURGICAL HISTORY RIGHT ROTATOR CUFF REPAIR 2010 FAMILY HISTORY FATHER: , DIAGNOSED WITH DIABETES MOTHER: ALIVE SIBLINGS: ALIVE SON(S): ALIVE DAUGHTER(S): ALIVE SOCIAL HISTORY GENERAL: TOBACCO USE ARE YOU A:CURRENT SMOKER ARE YOU INTERESTED IN QUITTING?NOT READY TO QUIT HOW MANY CIGARETTES A DAY DO YOU SMOKE?6-10 STILL TRYING TO CUT DOWN PATIENT COUNSELED ON THE DANGERS OF TOBACCO USE AND URGED TO QUIT:04/10/2019 SMOKING CESSATION INFORMATION GIVEN09/29/2019 OTHERS AT HOME: SPOUSE CATS. MALE 6 MONTH RISK ASSESSMENT FOR STD MONOGOMOUS?YES HOUSING: OWNS HOME. EDUCATION LEVEL OF EDUCATION:HIGH SCHOOL GED DIET: REGULAR. LANGUAGE LANGUAGES SPOKEN:BOLIVIAN DOMESTIC VIOLENCE DO YOU FEEL SAFE IN YOUR ENVIRONMENT?YES NEW PATIENT PAIN DIARY FROM 0-10, WHAT LEVEL IS YOUR PAIN TODAY? PT STATES PAIN ISAN 8 OUT OF 10 TODAY RECREATIONAL DRUG USE DRUG USE?NO PT DENIES ANY PAST OR CURRENT DRUG USE EXERCISE: WALKS. LEARNING BARRIERS / SPECIAL NEEDS CHANGE FROM LAST VISIT?NO BARRIERS TO LEARNING?NO HEARING IMPAIRED?YES VISION IMPAIRED?YES COGNITIVELY IMPAIRED?NO :HEARING AIDES :CORRECTIVE LENSES READINESS TO LEARN?YES LEARNING PREFERENCES?NO LEARNING CAPABILITIES PRESENT?YES EMOTIONAL BARRIERS?NO SPECIAL DEVICES?NO LINDERMAN MACHINE OPERATOR NEEDED?NO PAIN CLINIC PFS, CLERGY, PUBLIC HEALTH REFERRALS PFS REFERRAL NEEDED?NO CLERGY REFERRAL NEEDED?NO PUBLIC HEALTH REFERRAL NEEDED?NO WAS THE PROVIDER NOTIFIED OF ANY PERTINENT INFO?NO HAS THE PATIENT BEEN EDUCATED REGARDING HIS/HER PLAN OF CARE?YES HAS THE PATIENT BEEN EDUCATED REGARDING PAIN, THE RISK FOR PAIN, THE IMPORTANCE OF EFFECTIVE PAIN MANAGEMENT, AND THE PAIN ASSESSMENT PROCESS?YES LATEX QUESTIONNAIRE LATEX ALLERGY : HAVE YOU EVER DEVELOPED ANY TYPE OF REACTION AFTER HANDLING LATEX PRODUCTS SUCH RUBBER GLOVES, CONDOMS, DIAPHRAGMS, BALLOONS, SOCKS, OR UNDERWEAR?NO LATEX ALLERGY : HAVE YOU EVER DEVELOPED ANY TYPE OF REACTION DURING OR AFTER DENTAL APPOINTMENT, VAGINAL/RECTAL EXAMINATION, SURGICAL PROCEDURE, OR ANY OTHER EXPOSURE?NO DATE ASKED : 06/12/2019 LATEX RISK : HAVE YOU EVER HAD ANY DIFFICULTY BREATHING OR HIVES AFTER EATING OR HANDLING ANY FRUITS, OR VEGETABLES; SUCH KIWI, BANANAS, STONE FRUITS, OR CHESTNUTSNO LATEX RISK : DO YOU HAVE A PREVIOUS PERSONAL HISTORY OF MORE THAN NINE SURGERIES, SPINA BIFIDA, OR REPEATED CATHERIZATIONS? NO LATEX RISK : ARE YOU FREQUENTLY EXPOSED TO LATEX PRODUCTS IN YOUR OCCUPATION?NO CAFFEINE CAFFEINE USE?YES DAILY DRINKS 4 CUPS A DAY AND [place] DEW DAILY WELL ADVANCE DIRECTIVE ADVANCE DIRECTIVE DISCUSSED WITH PATIENT:YES WE DISCUSSED AND GAVE PAPERWORK [employer] APTIST MARITAL STATUS: . 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 HOSPITALIZATION/MAJOR DIAGNOSTIC PROCEDURE A CHILD PREUMONIA REVIEW OF SYSTEMS REVIEWED BY: PROVIDER: . CONSTITUTIONAL: ANY CHANGE IN YOUR MEDICAL CONDITION? NO . CHILLS NO . FEVER NO . INFECTION: DO YOU HAVE NEW INFECTIONS? NO . DO YOU HAVE HISTORY OF MRSA? NO . MUSCULOSKELETAL: ANY NEW PATTERNS OF PAIN OR NUMBNESS? INCREASED PAIN IN THE CENTER OF BACK . GASTROENTEROLOGY: ANY NEW CHANGE IN BOWEL CONTROL? NO . GENITOURINARY: ANY NEW CHANGE IN BLADDER CONTROL? NO . IS THERE A CHANCE YOU COULD BE ? NO . HEMATOLOGY/LYMPH: DO YOU TAKE ANY BLOOD THINNERS? (FOR EXAMPLE- COUMADIN, PLAVIX, AGGRENOX, PLATEL, PRADAXA, OR XARELTO) NO . WHEN WAS YOUR LAST DOSE? DATE: TIME: . NEUROLOGY: HAVE YOU FALLEN IN THE PAST 12 MONTHS? NOT LATELY "NO" . ANY NEW EXTREMITY NUMBNESS OR WEAKNESS? NO . CARDIOLOGY: DO YOU HAVE A PACEMAKER OR DEFIBRILLATOR? NO . RESPIRATORY: HAVE YOU BEEN SICK IN THE PAST WEEK? NO . FEVER NO . FLU LIKE SYMPTOMS? NO . COUGH NO . INTEGUMENTARY: DO YOU HAVE ANY RASHES OR OPEN SORES? ON ARMS "SCRATCHES FROM [place]" . ALLERGIC/IMMUNO: ARE YOU ALLERGIC TO IV DYE? NO . ANY NEW ALLERGIES? NO . PSYCHIATRIC: DO YOU HAVE THOUGHTS OF HURTING YOURSELF OR SOMEONE ELSE? NO . ARE YOU ABUSED, NEGLECTED, OR IN AN UNSAFE ENVIRONMENT? NO . ENDOCRINOLOGY: ARE YOU DIABETIC? NO . OTHER: DO YOU NEED ANY PRESCRIPTIONS? NO . IF YES, PLEASE LIST: ____ . ANY NEW PROBLEMS WITH YOUR MEDICATIONS? NO . WHEN DID YOU LAST EAT? ____ . WHEN DID YOU LAST DRINK? ____ . WHAT DID YOU LAST DRINK? ____ . NAME OF PERSON DRIVING YOU HOME? ____ . DO YOU HAVE ANY OTHER QUESTIONS OR CONCERNS NO . VITAL SIGNS WT 368 LBS, HT 70 IN, BMI 52.80 INDEX, BP 195/93 MM HG, HR 76 /MIN, RR 18 /MIN, TEMP 96.0 F, OXYGEN SAT % 97%, SAFE IN ENV? (Y/N) YES, NA INITIALS AW 1004, REVIEWED BY: KG. ASSESSMENTS MYALGIA, OTHER SITE - M79.18 (PRIMARY) PROCEDURES PN TRIGGER POINT INJECTION WITH STEROIDS PRE PROCEDURE DIAGNOSIS 1. MYALGIA 2. PAIN AT BILATERAL LUMBAR AREA. POST PROCEDURE DIAGNOSIS 1. MYALGIA 2. PAIN AT BILATERAL LUMBAR AREA. PROCEDURE TRIGGER POINT INJECTION AT RIGHT AND LEFT LOW BACK AREA. SURGEON DR. JELENA BAILEY PLASTICS FABRICATOR NONE ANESTHESIA LOCAL PRE PROCEDURE NOTE THE PATIENT HAS A HISTORY OF CHRONIC PAIN AT THE RIGHT AND LEFT LOW BACK AREA. I EVALUATED THE PATIENT AND REVIEWED THE CHART. THERE IS EVIDENCE OF BANDS OF TISSUE WITH RESTRICTION OF MOVEMENT AND PRESENCE OF TRIGGER POINT AT THE AFFECTED AREA. I WENT OVER THE RISKS, ALTERNATIVES, AND BENEFITS ASSOCIATED WITH THIS PROCEDURE. THE PATIENT WOULD LIKE TO PROCEED AND GIVE CONSENT TO PERFORMED THE PROCEDURE. THE PATIENT DENIES UNEXPLAINABLE WEIGHT LOSS, FEVER, CHILLS, OR NEW CHANGES IN URINARY OR BOWEL CONTROL DESCRIPTION OF PROCEDURE THE PATIENT WAS BROUGHT TO THE PROCEDURE ROOM AND PLACED IN THE SITTING POSITION. THE AREA WAS CLEANED WITH ALCOHOL. THE PROCEDURE WAS DONE USING ASEPTIC STERILE TECHNIQUE. I CHECKED LATERALITY AND THE LEVEL WHERE THE PROCEDURE WAS GOING TO BE PERFORMED WITH THE PATIENT AND THE SUPPORTING STAFF AT THE MOMENT OF THE TIME OUT IN THE PROCEDURE ROOM. USING A 25-GAUGE NEEDLE, TRIGGER POINTS WERE INJECTED AT THE RIGHT AND LEFT LOW BACK AREA WITH A TOTAL OF 40 ML OF BUPIVACAINE 0.25% AND KENALOG 40 MG. THERE WAS NO EVIDENCE OF BLOOD, PARESTHESIA OR CEREBROSPINAL FLUID DURING THE PROCEDURE. THE PATIENT WAS SENT TO THE RECOVERY ROOM. THE PATIENT WAS MOVING THE EXTREMITIES AND DOING WELL. THERE WAS NO COMPLICATION DURING THE PROCEDURE POST PROCEDURE NOTE THE PATIENT WILL BE SEEN IN A FOLLOW UP IN THE NEXT FEW WEEKS. I AM LOOKING FOR LONG LASTING PAIN RELIEF FOR THE PATIENT WITH THIS INJECTION. INSTRUCTIONS WERE GIVEN, QUESTIONS WERE ANSWERED, AND THE PATIENT EXPRESSED UNDERSTANDING AND AGREES WITH THE PLAN. I, YANN QUARLES, DOCUMENTED THE ABOVE INFORMATION ACTING A SCRIBE FOR DR. BAIELY. I HAVE REVIEWED THE ABOVE DOCUMENT, WRITTEN BY YANN QUARLES SCRIBE AND I VERIFY THAT IT IS ACCURATE. PROCEDURE CODES 23206 INJ TRIGGER POINT 07/09 [facility] [place] DISPOSITION & COMMUNICATION FOLLOW UP 3 WEEKS ELECTRONICALLY SIGNED BY JELENA BAILEY MD, MD ON 10/02/2019 AT 04:49 PM EDT DISCLAIMER : THIS IS A VISIT SUMMARY EXTRACTED FROM THE [employer] CHART. IT IS NOT A COPY OF THE [employer] PROGRESS NOTE. ROMAIN
== END ==
LOC: M PAIN 09:45
PROVIDERS: ATTEND Anesthesiology
DX: M79.18 Myalgia, other site (principal); F17.210 Nicotine dependence, cigarettes, uncomplicated; Z79.891 Long term (current) use of opiate analgesic; Z79.899 Other long term (current) drug therapy
CPT/HCPCS: 20552; J3301

== ENCOUNTER → 2019-10-16 | Outpatient (CLI) | payer MEDICARE ==
[~2019-10-16] MED LIST changes: -BUPIVACAINE HCL 0.25% 30 ML VIAL As Ordered ONE; -NORCO, ANEXSIA 5/325MG TABLET (HYDROcodone/ACETAMINOPHEN) As Ordered ONE; -TRIAMCINOLONE ACETONIDE SUSP 40 MG/ML VIAL (J3301) As Ordered ONE; -diazePAM 5 MG TAB As Ordered ONE
--- NOTE | 2019-10-19 10:30 | ECWPNPC ---
PATIENT NAME: RASHEL HILL : 1965 GENDER: MALE VISIT DATE: 10/16/2019 DISCHARGE DATE: 10/16/19 1437 VISIT LOCKED DATE TIME: PHYSICIAN: TEE ROCHA RESOURCE: TEE ROCHA REASON FOR APPOINTMENT 1. POST TPI HISTORY OF PRESENT ILLNESS HISTORY OF PRESENT ILLNESS: PHONE CALL TO PATIENT WHO IS AGREEABLE TO TELEPHONE VISIT TODAY. HAD BILATERAL LUMBAR TRIGGER POINT INJECTIONS ON 09/29/2019. REPORTING MARKED REDUCTION IN PAIN THAT CONTINUES TODAY. RATING PAIN LEVEL A 4/10 VAS. REVIEWED MEDICATIONS THAT HE IS TAKING FOR CHRONIC PAIN. CURRENTLY TAKES TRAMADOL 50 MG 4 TIMES A DAY AND DOESN'T FEEL THOUGH IT REALLY IS DOING MUCH HE HAS BEEN ON IT FOR SEVERAL YEARS. HE IS WILLING TO SLOWLY DECREASE AND DISCONTINUE THIS MEDICATION. PAIN THE PATIENT DESCRIBES THE PAIN... FALL RISK SCREENING: SCREENING :NO FALLS REPORTED IN THE LAST YEAR CURRENT MEDICATIONS TAKING DESVENLAFAXINE SUCCINATE 1 TABLET ORAL DAILY TAKING BISOPROLOL FUMARATE 5 MG TABLET 1 TABLET ORALLY ONCE A DAY TAKING CELEBREX 200 MG CAPSULE 1 CAPSULE WITH FOOD ORALLY ONCE A DAY TAKING TRAMADOL HCL 50 MG TABLET 1 TABLET NEEDED ORALLY MDD 4 TAKING GABAPENTIN 300 MG CAPSULE 1 CAP ORALLY 1 AM AND PM TAKING TIZANIDINE HCL 4 MG TABLET 1 TABLET NEEDED ORALLY Q8H PRN PAIN TAKING PRAVASTATIN SODIUM 40 MG TABLET 1 TABLET ORALLY ONCE A DAY TAKING OMEPRAZOLE MAGNESIUM 20 MG TABLET DELAYED RELEASE 1 TABLET ORALLY ONCE A DAY NOT-TAKING DESVENLAFAXINE SUCCINATE MEDICATION LIST REVIEWED AND RECONCILED WITH THE PATIENT PAST MEDICAL HISTORY ESOPHAGEAL REFLUX ESSENTIAL HYPERTENSION HYPERLIPIDEMIA MAJOR DEPRESSION-PAST OBESITY SLEEP APNEA ALLERGIES N.K.D.A. SURGICAL HISTORY RIGHT ROTATOR CUFF REPAIR 2010 FAMILY HISTORY FATHER: , DIAGNOSED WITH DIABETES MOTHER: ALIVE SIBLINGS: ALIVE SON(S): ALIVE DAUGHTER(S): ALIVE SOCIAL HISTORY GENERAL: TOBACCO USE ARE YOU A:CURRENT SMOKER ARE YOU INTERESTED IN QUITTING?NOT READY TO QUIT HOW MANY CIGARETTES A DAY DO YOU SMOKE?6-10 STILL TRYING TO CUT DOWN PATIENT COUNSELED ON THE DANGERS OF TOBACCO USE AND URGED TO QUIT:10/16/2019 SMOKING CESSATION INFORMATION GIVEN09/29/2019 OTHERS AT HOME: SPOUSE CATS. MALE 6 MONTH RISK ASSESSMENT FOR STD MONOGOMOUS?YES HOUSING: OWNS HOME. EDUCATION LEVEL OF EDUCATION:HIGH SCHOOL GED DIET: REGULAR. LANGUAGE LANGUAGES SPOKEN:QATARI DOMESTIC VIOLENCE DO YOU FEEL SAFE IN YOUR ENVIRONMENT?YES NEW PATIENT PAIN DIARY TODAY'S VISITNOTES 10/16/2019 PATIENT DESCRIBES PAIN :HAVE IT ALL THE TIME, OTHER PRESSURE FROM 0-10, WHAT LEVEL IS YOUR PAIN TODAY?4 RECREATIONAL DRUG USE DRUG USE?NO PT DENIES ANY PAST OR CURRENT DRUG USE EXERCISE: WALKS. LEARNING BARRIERS / SPECIAL NEEDS CHANGE FROM LAST VISIT?NO BARRIERS TO LEARNING?NO HEARING IMPAIRED?YES VISION IMPAIRED?YES COGNITIVELY IMPAIRED?NO :HEARING AIDES :CORRECTIVE LENSES READINESS TO LEARN?YES LEARNING PREFERENCES?NO LEARNING CAPABILITIES PRESENT?YES EMOTIONAL BARRIERS?NO SPECIAL DEVICES?NO INDUSTRIAL RELATIONS OFFICER NEEDED?NO PAIN CLINIC PFS, CLERGY, PUBLIC HEALTH REFERRALS PFS REFERRAL NEEDED?NO CLERGY REFERRAL NEEDED?NO PUBLIC HEALTH REFERRAL NEEDED?NO WAS THE PROVIDER NOTIFIED OF ANY PERTINENT INFO?NO HAS THE PATIENT BEEN EDUCATED REGARDING HIS/HER PLAN OF CARE?YES HAS THE PATIENT BEEN EDUCATED REGARDING PAIN, THE RISK FOR PAIN, THE IMPORTANCE OF EFFECTIVE PAIN MANAGEMENT, AND THE PAIN ASSESSMENT PROCESS?YES LATEX QUESTIONNAIRE LATEX ALLERGY : HAVE YOU EVER DEVELOPED ANY TYPE OF REACTION AFTER HANDLING LATEX PRODUCTS SUCH RUBBER GLOVES, CONDOMS, DIAPHRAGMS, BALLOONS, SOCKS, OR UNDERWEAR?NO LATEX ALLERGY : HAVE YOU EVER DEVELOPED ANY TYPE OF REACTION DURING OR AFTER DENTAL APPOINTMENT, VAGINAL/RECTAL EXAMINATION, SURGICAL PROCEDURE, OR ANY OTHER EXPOSURE?NO LATEX RISK : HAVE YOU EVER HAD ANY DIFFICULTY BREATHING OR HIVES AFTER EATING OR HANDLING ANY FRUITS, OR VEGETABLES; SUCH KIWI, BANANAS, STONE FRUITS, OR CHESTNUTSNO LATEX RISK : DO YOU HAVE A PREVIOUS PERSONAL HISTORY OF MORE THAN NINE SURGERIES, SPINA BIFIDA, OR REPEATED CATHERIZATIONS? NO LATEX RISK : ARE YOU FREQUENTLY EXPOSED TO LATEX PRODUCTS IN YOUR OCCUPATION?NO DATE ASKED : 06/12/2019 CAFFEINE CAFFEINE USE?YES DAILY DRINKS 4 CUPS A DAY AND [place] DEW DAILY WELL ADVANCE DIRECTIVE ADVANCE DIRECTIVE DISCUSSED WITH PATIENT:YES PATIENT HAS NO ADVANCED DIRECTIVES AND DECLINES INFORMATION AT THIS TIME. SABIANIST SABIANIST APTIST MARITAL STATUS: . 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 =. HOSPITALIZATION/MAJOR DIAGNOSTIC PROCEDURE A CHILD PREUMONIA REVIEW OF SYSTEMS REVIEWED BY: PROVIDER: TEE CHRISTENSEN . CONSTITUTIONAL: ANY CHANGE IN YOUR MEDICAL CONDITION? NO . CHILLS NO . FEVER NO . INFECTION: DO YOU HAVE NEW INFECTIONS? NO . DO YOU HAVE HISTORY OF MRSA? NO . MUSCULOSKELETAL: ANY NEW PATTERNS OF PAIN OR NUMBNESS? NO . GASTROENTEROLOGY: ANY NEW CHANGE IN BOWEL CONTROL? NO . GENITOURINARY: ANY NEW CHANGE IN BLADDER CONTROL? NO . IS THERE A CHANCE YOU COULD BE ? NO . HEMATOLOGY/LYMPH: DO YOU TAKE ANY BLOOD THINNERS? (FOR EXAMPLE- COUMADIN, PLAVIX, AGGRENOX, PLATEL, PRADAXA, OR XARELTO) NO . WHEN WAS YOUR LAST DOSE? DATE: TIME: . NEUROLOGY: HAVE YOU FALLEN IN THE PAST 12 MONTHS? YES, STATES PRIOR TO LAST VISIT, DISCUSSED AT PREVIOUS VISITS . ANY NEW EXTREMITY NUMBNESS OR WEAKNESS? NO . CARDIOLOGY: DO YOU HAVE A PACEMAKER OR DEFIBRILLATOR? NO . RESPIRATORY: HAVE YOU BEEN SICK IN THE PAST WEEK? NO . FEVER NO . FLU LIKE SYMPTOMS? NO . COUGH NO . INTEGUMENTARY: DO YOU HAVE ANY RASHES OR OPEN SORES? YES, SCRATCHES FROM CAT TO LEGS . ALLERGIC/IMMUNO: ARE YOU ALLERGIC TO IV DYE? NO . ANY NEW ALLERGIES? NO . PSYCHIATRIC: DO YOU HAVE THOUGHTS OF HURTING YOURSELF OR SOMEONE ELSE? NO . ARE YOU ABUSED, NEGLECTED, OR IN AN UNSAFE ENVIRONMENT? NO . ENDOCRINOLOGY: ARE YOU DIABETIC? NO . OTHER: DO YOU NEED ANY PRESCRIPTIONS? YES . IF YES, PLEASE LIST: ____TIZANIDINE, GABAPENTIN . ANY NEW PROBLEMS WITH YOUR MEDICATIONS? NO . WHEN DID YOU LAST EAT? ____ . WHEN DID YOU LAST DRINK? ____ . WHAT DID YOU LAST DRINK? ____ . NAME OF PERSON DRIVING YOU HOME? ____ . DO YOU HAVE ANY OTHER QUESTIONS OR CONCERNS NO . ASSESSMENTS MYALGIA, OTHER SITE - M79.18 (PRIMARY) SPONDYLOSIS WITHOUT MYELOPATHY OR RADICULOPATHY, LUMBAR REGION - M47.816 TREATMENT MYALGIA, OTHER SITE CONTINUE CELEBREX CAPSULE, 200 MG, 1 CAPSULE WITH FOOD, ORALLY, ONCE A DAY STOP TRAMADOL HCL TABLET, 50 MG, 1 TABLET NEEDED, ORALLY, MDD 4 CONTINUE GABAPENTIN CAPSULE, 300 MG, 1 CAP, ORALLY, 1 AM AND PM REFILL TIZANIDINE HCL TABLET, 4 MG, 1 TABLET NEEDED, ORALLY, Q8H PRN PAIN, 30 DAYS, 45, REFILLS 1 NOTES: PATIENT IS ADVISED TO TAKE TRAMADOL 50 MG 1 TAB 3 TIMES A DAY X7 DAYS, 2 TIMES A DAY X7 DAYS, THEN 1 TABLET ONCE A DAY X7 DAYS, THEN DISCONTINUE. ADVISED TO USE, TIZANIDINE 4 MG STRENGTH 1 NEEDED FOR SEVERE PAIN EPISODES. ADVISED TO CONTINUE GABAPENTIN 300 MG TWICE A DAY AND CELEBREX DAILY. FOLLOW-UP IS SCHEDULED IN 2 MONTHS. TOTAL TIME SPENT DURING TELEPHONE VISIT TODAY WAS APPROXIMATELY 11 MINUTES. OTHERS NOTES: VITALS NOT OBTAINED DUE TO VIRTUAL VISIT. DISPOSITION & COMMUNICATION FOLLOW UP 2 MONTHS (REASON: LBP) ELECTRONICALLY SIGNED BY AMPARO WICK ON 10/16/2019 AT 02:28 PM EDT DISCLAIMER : THIS IS A VISIT SUMMARY EXTRACTED FROM THE [employer] CHART. IT IS NOT A COPY OF THE [employer] PROGRESS NOTE. [place]
== END ==
LOC: M PAIN 13:15
PROVIDERS: ATTEND Nurse Practitioner Family
DX: M79.18 Myalgia, other site (principal); M47.816 Spondylosis without myelopathy or radiculopathy, lumbar region; I10 Essential (primary) hypertension; F17.210 Nicotine dependence, cigarettes, uncomplicated; Z79.891 Long term (current) use of opiate analgesic; Z79.899 Other long term (current) drug therapy

== ENCOUNTER → 2020-01-01 | Outpatient (CLI) | payer MEDICARE ==
--- NOTE | 2020-01-06 01:56 | ECWPNPC ---
PATIENT NAME: RASHEL HILL : 1965 GENDER: MALE VISIT DATE: 01/01/2020 DISCHARGE DATE: 01/01/20 1354 VISIT LOCKED DATE TIME: PHYSICIAN: TEE ROCHA RESOURCE: TEE ROCHA REASON FOR APPOINTMENT 1. LBP HISTORY OF PRESENT ILLNESS GENERAL: PHIL IS BEING SEEN IN THE CLINIC TODAY FOR CHRONIC LOW BACK PAIN. DURING TELEPHONE VISIT IN OCTOBER HE THOUGHT TRAMADOL WAS NOT EFFECTIVE. HE WEANED HIMSELF OFF OF THAT. STATES THAT HIS PAIN WAS AGGRAVATED SO HE RESTARTED IT. TAKING 2 TRAMADOL IN THE MORNING AND 2 AT NIGHT. STATES IT IS HELPING A BIT. CONTINUES TO BENEFIT FROM TRIGGER POINT INJECTIONS DONE SEVERAL MONTHS AGO HERE. DISCUSSED MEDICATION AND TREATMENT PLAN. -. FALL RISK SCREENING: SCREENING :TWO OR MORE FALLS WITHOUT INJURY IN THE PAST YEAR PAIN SCREENING: PATIENT HAS A COMPLAINT OF ACUTE OR CHRONIC PAIN :YES 01/01/20 INTENSITY OF PAIN (SCALE OF 1 TO 10):6 WHAT DOES YOUR PAIN FEEL LIKE:CONTINOUS HURT, CRAMPING PAIN IS INCREASED BY: BENDING, GARDENING, ACTIVITIES PAIN IS DECREASED BY: REST NURSING NOTE: -. PAIN CENTER INTAKE QUESTIONS: DO YOU HAVE A HISTORY OF MRSA? :NO DO YOU TAKE A BLOOD THINNERS? :NO DO YOU HAVE ANY BLEEDING DISORDERS? :NO ANY NEW NUMBNESS OR WEAKNESS IN YOUR LEGS OR ARMS? :NO ANY PACEMAKER,DEFIBRILLATOR, OR DORSAL COLUMN STIMULATOR? :NO DO YOU HAVE ANY RASHES OR OPEN SORES? :NO ARE YOU ALLERGIC TO IV DYE? :NO ARE YOU DIABETIC? :NO ANY NEW PROBLEMS WITH YOUR MEDICATIONS? :NO HAVE YOU RECEIVED A VACCINE IN THE PAST 30 DAYS? :NO DO YOU PLAN TO RECEIVE A VACCINE IN THE NEXT 21 DAYS? :NO DO YOU NEED ANY PRESCRIPTION? :NO DO YOU TAKE ANY IMMUNOSUPPRESSIVE MEDICATIONS? :NO IS THERE A CHANCE YOU COULD BE ? :NO ARE YOU BREAST FEEDING? :NO CURRENT MEDICATIONS TAKING DESVENLAFAXINE SUCCINATE 1 TABLET ORAL DAILY TAKING BISOPROLOL FUMARATE 5 MG TABLET 1 TABLET ORALLY ONCE A DAY TAKING PRAVASTATIN SODIUM 40 MG TABLET 1 TABLET ORALLY ONCE A DAY TAKING OMEPRAZOLE MAGNESIUM 20 MG TABLET DELAYED RELEASE 1 TABLET ORALLY ONCE A DAY TAKING CELEBREX 200 MG CAPSULE 1 CAPSULE WITH FOOD ORALLY ONCE A DAY TAKING TIZANIDINE HCL 4 MG TABLET 1 TABLET NEEDED ORALLY Q8H PRN PAIN TAKING GABAPENTIN 300 MG CAPSULE 1 CAP ORALLY 1 AM AND PM NOT-TAKING DESVENLAFAXINE SUCCINATE MEDICATION LIST REVIEWED AND RECONCILED WITH THE PATIENT PAST MEDICAL HISTORY ESOPHAGEAL REFLUX ESSENTIAL HYPERTENSION HYPERLIPIDEMIA MAJOR DEPRESSION-PAST OBESITY SLEEP APNEA ALLERGIES N.K.D.A. SURGICAL HISTORY RIGHT ROTATOR CUFF REPAIR 2010 FAMILY HISTORY FATHER: , DIAGNOSED WITH DIABETES MOTHER: ALIVE SIBLINGS: ALIVE SON(S): ALIVE DAUGHTER(S): ALIVE SOCIAL HISTORY GENERAL: TOBACCO USE ARE YOU A:CURRENT SMOKER ARE YOU INTERESTED IN QUITTING?NOT READY TO QUIT COUNSELED THE PATIENT ON SMOKING EFFECTS, EDUCATION [id number]/26/2020 HOW MANY CIGARETTES A DAY DO YOU SMOKE?6-10 STILL TRYING TO CUT DOWN PATIENT COUNSELED ON THE DANGERS OF TOBACCO USE AND URGED TO QUIT:10/16/2019 SMOKING CESSATION INFORMATION GIVEN09/29/2019 LATEX QUESTIONNAIRE LATEX ALLERGY : HAVE YOU EVER DEVELOPED ANY TYPE OF REACTION AFTER HANDLING LATEX PRODUCTS SUCH RUBBER GLOVES, CONDOMS, DIAPHRAGMS, BALLOONS, SOCKS, OR UNDERWEAR?NO LATEX ALLERGY : HAVE YOU EVER DEVELOPED ANY TYPE OF REACTION DURING OR AFTER DENTAL APPOINTMENT, VAGINAL/RECTAL EXAMINATION, SURGICAL PROCEDURE, OR ANY OTHER EXPOSURE?NO DATE ASKED : 06/12/2019 LATEX RISK : HAVE YOU EVER HAD ANY DIFFICULTY BREATHING OR HIVES AFTER EATING OR HANDLING ANY FRUITS, OR VEGETABLES; SUCH KIWI, BANANAS, STONE FRUITS, OR CHESTNUTSNO LATEX RISK : DO YOU HAVE A PREVIOUS PERSONAL HISTORY OF MORE THAN NINE SURGERIES, SPINA BIFIDA, OR REPEATED CATHERIZATIONS? NO LATEX RISK : ARE YOU FREQUENTLY EXPOSED TO LATEX PRODUCTS IN YOUR OCCUPATION?NO ALCOHOL SCREENING DID YOU HAVE A DRINK CONTAINING ALCOHOL IN THE PAST YEAR?NO POINTS0 INTERPRETATIONNEGATIVE RECREATIONAL DRUG USE DRUG USE?NO PT DENIES ANY PAST OR CURRENT DRUG USE CAFFEINE CAFFEINE USE?YES DAILY DRINKS 4 CUPS A DAY AND [place] DEW DAILY WELL TEMPLE TEMPLE APTIST LANGUAGE LANGUAGES SPOKEN:ICELANDIC EDUCATION LEVEL OF EDUCATION:HIGH SCHOOL GED LEARNING BARRIERS / SPECIAL NEEDS CHANGE FROM LAST VISIT?NO BARRIERS TO LEARNING?NO HEARING IMPAIRED?YES VISION IMPAIRED?YES COGNITIVELY IMPAIRED?NO :HEARING AIDES :CORRECTIVE LENSES READINESS TO LEARN?YES LEARNING PREFERENCES?NO LEARNING CAPABILITIES PRESENT?YES EMOTIONAL BARRIERS?NO SPECIAL DEVICES?NO SOFTWARE REQUIREMENTS ENGINEER NEEDED?NO DOMESTIC VIOLENCE DO YOU FEEL SAFE IN YOUR ENVIRONMENT?YES 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 DIET: REGULAR. EXERCISE: WALKS. MARITAL STATUS: . OTHERS AT HOME: SPOUSE CATS. MALE 6 MONTH RISK ASSESSMENT FOR STD MONOGOMOUS?YES NEW PATIENT PAIN DIARY TODAY'S VISITNOTES 10/16/2019 PATIENT DESCRIBES PAIN :HAVE IT ALL THE TIME, OTHER PRESSURE FROM 0-10, WHAT LEVEL IS YOUR PAIN TODAY?4 PAIN CLINIC PFS, CLERGY, PUBLIC HEALTH REFERRALS PFS REFERRAL NEEDED?NO CLERGY REFERRAL NEEDED?NO PUBLIC HEALTH REFERRAL NEEDED?NO WAS THE PROVIDER NOTIFIED OF ANY PERTINENT INFO?NO HAS THE PATIENT BEEN EDUCATED REGARDING HIS/HER PLAN OF CARE?YES HAS THE PATIENT BEEN EDUCATED REGARDING PAIN, THE RISK FOR PAIN, THE IMPORTANCE OF EFFECTIVE PAIN MANAGEMENT, AND THE PAIN ASSESSMENT PROCESS?YES HOUSING: OWNS HOME. ADVANCE DIRECTIVE ADVANCE DIRECTIVE DISCUSSED WITH PATIENT:YES PATIENT HAS NO ADVANCED DIRECTIVES AND DECLINES INFORMATION AT THIS TIME. =. HOSPITALIZATION/MAJOR DIAGNOSTIC PROCEDURE A CHILD PREUMONIA REVIEW OF SYSTEMS CONSTITUTIONAL: ANY RECENT FEVER NO . CHILLS NO . WEIGHT CHANGE OF UNKNOWN REASONS NO . GASTROENTEROLOGY: NEW UNEXPLAINABLE CHANGES IN BOWEL CONTROL NO . CONSTIPATION NO . GENITOURINARY: ANY NEW CHANGE IN BLADDER CONTROL? NO . NEUROLOGY: NEW ONSET DIZZINESS OR NEUROLOGICAL CHANGES NOT MENTIONED NO . NEW NUMBNESS OR PAIN PATTERNS NOT MENTIONED AND PERTINENT TO TODAY'S VISIT NO . CARDIOLOGY: NEW CHEST PRESSURE NO . NEW CHEST PAIN NO . RESPIRATORY: UNEXPLAINABLE COUGH NO . NEW SHORTNESS OF BREATH NO . VITAL SIGNS WT 372.6 LBS, HT 70 IN, BMI 53.46 INDEX, BP 188/106 MM HG, HR 67 /MIN, RR 18 /MIN, TEMP 98.0 F, OXYGEN SAT % 97%, SAFE IN ENV? (Y/N) Y, NA INITIALS [id number], REVIEWED BY: VEE. EXAMINATION GENERAL EXAMINATION: GENERALAWAKE,ALERT ,PLEASANT . PSYCHAFFECT NORMAL . LUNGS:LUNG SHERIDAN ARE CLEAR TO AUSCULTATION BILATERALLY. GOOD MOVEMENT OF AIR . HEART:S1, S2 IN A REGULAR RATE AND RHYTHM. NO SIGNIFICANT MURMURS, RUBS OR GALLOPS NOTED . ASSESSMENTS MYALGIA, OTHER SITE - M79.18 (PRIMARY) SPONDYLOSIS WITHOUT MYELOPATHY OR RADICULOPATHY, LUMBAR REGION - M47.816 TREATMENT MYALGIA, OTHER SITE CONTINUE CELEBREX CAPSULE, 200 MG, 1 CAPSULE WITH FOOD, ORALLY, ONCE A DAY CONTINUE TIZANIDINE HCL TABLET, 4 MG, 1 TABLET NEEDED, ORALLY, Q8H PRN PAIN CONTINUE GABAPENTIN CAPSULE, 300 MG, 1 CAP, ORALLY, 1 AM AND PM PROCEDURE CODES FA211 ESTABILISHED PATIENT [facility] CHARGE DISPOSITION & COMMUNICATION FOLLOW UP 3 MONTHS (REASON: LBP/MED MGMNT/URINE TOX) ELECTRONICALLY SIGNED BY AMPARO WICK ON 01/05/2020 AT 08:40 AM EDT DISCLAIMER : THIS IS A VISIT SUMMARY EXTRACTED FROM THE [employer] CHART. IT IS NOT A COPY OF THE [employer] PROGRESS NOTE. MTDD
== END ==
LOC: M PAIN 13:15
PROVIDERS: ATTEND Nurse Practitioner Family
DX: M79.18 Myalgia, other site (principal); M47.816 Spondylosis without myelopathy or radiculopathy, lumbar region; I10 Essential (primary) hypertension; Z79.899 Other long term (current) drug therapy; F17.210 Nicotine dependence, cigarettes, uncomplicated

== ENCOUNTER → 2020-04-01 | Outpatient (CLI) | payer MEDICARE | LOC: M PAIN 12:39 | PROVIDERS: ATTEND Nurse Practitioner Family | DX: M47.817 Spondylosis without myelopathy or radiculopathy, lumbosacral region (principal); M79.18 Myalgia, other site; Z79.891 Long term (current) use of opiate analgesic ==

== ENCOUNTER → 2020-09-21 | Outpatient (CLI) | payer MEDICARE ==
--- NOTE | 2020-09-27 00:42 | ECWPNPC ---
PATIENT NAME: RASHEL HILL : 1965 GENDER: MALE VISIT DATE: 09/21/2020 DISCHARGE DATE: 09/21/20 1510 VISIT LOCKED DATE TIME: PHYSICIAN: TEE ROCHA RESOURCE: TEE ROCHA REASON FOR APPOINTMENT 1. F/U HISTORY OF PRESENT ILLNESS DEPRESSION SCREENING: PHQ-2 (2015 EDITION) LITTLE INTEREST OR PLEASURE IN DOING THINGS?NOT AT ALL FEELING DOWN, DEPRESSED, OR HOPELESS?NOT AT ALL TOTAL SCORE0 GENERAL: HERE FOR FOLLOW-UP OF CHRONIC LOW BACK PAIN. PAIN HAS INCREASED OVER THE PAST FEW MONTHS. PAIN IS LOCATED IN ITS USUAL LOCATION ACROSS LOW BACK. PAIN IS AGGRAVATED BY RANGE OF JOINT MOTION OF THE SPINE. CURRENTLY USING TIZANIDINE 4 MG NEEDED FOR SEVERE PAIN EPISODES. ALSO TAKING GABAPENTIN 300 MG TWICE A DAY. REVIEWED MRI AND DISCUSSED TREATMENT PLAN.-. FALL RISK SCREENING: SCREENING : NO FALLS REPORTED IN THE LAST YEAR. PAIN SCREENING: PATIENT HAS A COMPLAINT OF ACUTE OR CHRONIC PAIN :YES LOCATION OF PAIN:LOW BACK INTENSITY OF PAIN (SCALE OF 1 TO 10):8 WHAT DOES YOUR PAIN FEEL LIKE:CONTINOUS DURATION:CONTINOUS, CONSTANT PAIN IS INCREASED BY:ACTIVITIES, PROLONGED STANDING PAIN IS DECREASED BY:OTHERS HEAT NURSING NOTE: -. PAIN CENTER INTAKE QUESTIONS: DO YOU HAVE A HISTORY OF MRSA? :NO DO YOU TAKE A BLOOD THINNERS? :NO DO YOU HAVE ANY BLEEDING DISORDERS? :NO ANY NEW NUMBNESS OR WEAKNESS IN YOUR LEGS OR ARMS? :NO ANY PACEMAKER,DEFIBRILLATOR, OR DORSAL COLUMN STIMULATOR? :NO DO YOU HAVE ANY RASHES OR OPEN SORES? :NO ARE YOU ALLERGIC TO IV DYE? :NO ARE YOU DIABETIC? :NO ANY NEW PROBLEMS WITH YOUR MEDICATIONS? :NO HAVE YOU RECEIVED A VACCINE IN THE PAST 30 DAYS? :NO DO YOU PLAN TO RECEIVE A VACCINE IN THE NEXT 21 DAYS? :NO DO YOU NEED ANY PRESCRIPTION? :NO DO YOU TAKE ANY IMMUNOSUPPRESSIVE MEDICATIONS? :NO IS THERE A CHANCE YOU COULD BE ? :NO ARE YOU BREAST FEEDING? :NO CURRENT MEDICATIONS TAKING DESVENLAFAXINE SUCCINATE 1 TABLET ORAL DAILY TAKING BISOPROLOL FUMARATE 5 MG TABLET 1 TABLET ORALLY ONCE A DAY TAKING PRAVASTATIN SODIUM 40 MG TABLET 1 TABLET ORALLY ONCE A DAY TAKING OMEPRAZOLE MAGNESIUM 20 MG TABLET DELAYED RELEASE 1 TABLET ORALLY ONCE A DAY TAKING CELEBREX 200 MG CAPSULE 1 CAPSULE WITH FOOD ORALLY ONCE A DAY TAKING TIZANIDINE HCL 4 MG TABLET 1 TABLET NEEDED ORALLY Q8H PRN PAIN TAKING GABAPENTIN 300 MG CAPSULE 1 CAP ORALLY 1 AM AND PM NOT-TAKING DESVENLAFAXINE SUCCINATE MEDICATION LIST REVIEWED AND RECONCILED WITH THE PATIENT PAST MEDICAL HISTORY ESOPHAGEAL REFLUX ESSENTIAL HYPERTENSION HYPERLIPIDEMIA MAJOR DEPRESSION-PAST OBESITY SLEEP APNEA LOW BACK PAIN ALLERGIES N.K.D.A. SOCIAL HISTORY GENERAL: TOBACCO USE ARE YOU A:CURRENT SMOKER ARE YOU INTERESTED IN QUITTING?NOT READY TO QUIT COUNSELED THE PATIENT ON SMOKING EFFECTS, EDUCATION [id number]/17/2021 HOW MANY CIGARETTES A DAY DO YOU SMOKE?6-10 STILL TRYING TO CUT DOWN PATIENT COUNSELED ON THE DANGERS OF TOBACCO USE AND URGED TO QUIT:10/16/2019 SMOKING CESSATION INFORMATION GIVEN09/29/2019 LATEX QUESTIONNAIRE LATEX ALLERGY : HAVE YOU EVER DEVELOPED ANY TYPE OF REACTION AFTER HANDLING LATEX PRODUCTS SUCH RUBBER GLOVES, CONDOMS, DIAPHRAGMS, BALLOONS, SOCKS, OR UNDERWEAR?NO LATEX ALLERGY : HAVE YOU EVER DEVELOPED ANY TYPE OF REACTION DURING OR AFTER DENTAL APPOINTMENT, VAGINAL/RECTAL EXAMINATION, SURGICAL PROCEDURE, OR ANY OTHER EXPOSURE?NO LATEX RISK : HAVE YOU EVER HAD ANY DIFFICULTY BREATHING OR HIVES AFTER EATING OR HANDLING ANY FRUITS, OR VEGETABLES; SUCH KIWI, BANANAS, STONE FRUITS, OR CHESTNUTSNO LATEX RISK : DO YOU HAVE A PREVIOUS PERSONAL HISTORY OF MORE THAN NINE SURGERIES, SPINA BIFIDA, OR REPEATED CATHERIZATIONS? NO LATEX RISK : ARE YOU FREQUENTLY EXPOSED TO LATEX PRODUCTS IN YOUR OCCUPATION?NO DATE ASKED : 09/21/2020 ALCOHOL USE: YES, VERY LITTLE. ALCOHOL SCREENING DID YOU HAVE A DRINK CONTAINING ALCOHOL IN THE PAST YEAR?NO POINTS0 INTERPRETATIONNEGATIVE RECREATIONAL DRUG USE DRUG USE?NO PT DENIES ANY PAST OR CURRENT DRUG USE CAFFEINE CAFFEINE USE?YES DAILY DRINKS 4 CUPS A DAY AND [place] DEW DAILY WELL SABIANIST SABIANIST APTIST LANGUAGE LANGUAGES SPOKEN:KINYARWANDA EDUCATION LEVEL OF EDUCATION:HIGH SCHOOL GED LEARNING BARRIERS / SPECIAL NEEDS CHANGE FROM LAST VISIT?NO BARRIERS TO LEARNING?NO HEARING IMPAIRED?YES :HEARING AIDES VISION IMPAIRED?YES :CORRECTIVE LENSES COGNITIVELY IMPAIRED?NO READINESS TO LEARN?YES LEARNING PREFERENCES?NO LEARNING CAPABILITIES PRESENT?YES EMOTIONAL BARRIERS?NO SPECIAL DEVICES?NO AUTOMATION TECHNOLOGIST NEEDED?NO DOMESTIC VIOLENCE DO YOU FEEL SAFE IN YOUR ENVIRONMENT?YES 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 DIET: REGULAR. EXERCISE: WALKS. MARITAL STATUS: . OTHERS AT HOME: SPOUSE CATS. MALE 6 MONTH RISK ASSESSMENT FOR STD MONOGOMOUS?YES TODAY'S VISITNOTES 10/16/2019 PATIENT DESCRIBES PAIN :HAVE IT ALL THE TIME, OTHER PRESSURE FROM 0-10, WHAT LEVEL IS YOUR PAIN TODAY?4 - PFS REFERRAL NEEDED?NO CLERGY REFERRAL NEEDED?NO PUBLIC HEALTH REFERRAL NEEDED?NO WAS THE PROVIDER NOTIFIED OF ANY PERTINENT INFO?NO HAS THE PATIENT BEEN EDUCATED REGARDING HIS/HER PLAN OF CARE?YES HAS THE PATIENT BEEN EDUCATED REGARDING PAIN, THE RISK FOR PAIN, THE IMPORTANCE OF EFFECTIVE PAIN MANAGEMENT, AND THE PAIN ASSESSMENT PROCESS?YES HOUSING: OWNS HOME. ADVANCE DIRECTIVE ADVANCE DIRECTIVE DISCUSSED WITH PATIENT:YES PATIENT HAS NO ADVANCED DIRECTIVES AND DECLINES INFORMATION AT THIS TIME. =. REVIEW OF SYSTEMS CONSTITUTIONAL: ANY RECENT FEVER NO . CHILLS NO . WEIGHT CHANGE OF UNKNOWN REASONS NO . GASTROENTEROLOGY: NEW UNEXPLAINABLE CHANGES IN BOWEL CONTROL NO . CONSTIPATION NO . GENITOURINARY: ANY NEW CHANGE IN BLADDER CONTROL? NO . NEUROLOGY: NEW ONSET DIZZINESS OR NEUROLOGICAL CHANGES NOT MENTIONED NO . NEW NUMBNESS OR PAIN PATTERNS NOT MENTIONED AND PERTINENT TO TODAY'S VISIT NO . CARDIOLOGY: NEW CHEST PRESSURE NO . PATIENT DENIES NO . RESPIRATORY: UNEXPLAINABLE COUGH NO . NEW SHORTNESS OF BREATH NO . VITAL SIGNS WT 308 LBS, HT 70 IN, BMI 44.19 INDEX, BP 190/102 MM HG, HR 64 /MIN, RR 18 /MIN, TEMP 97.5 F, OXYGEN SAT % 98%, SAFE IN ENV? (Y/N) YEST.NANCY SAXENA. EXAMINATION GENERAL EXAMINATION: LUNGS: LUNG SOUNDS ARE CLEAR . HEART: HEART RATE REGULAR . MUSCULOSKELETAL:*, MUSCLE STRENGTH TESTING 5/5 BILATERAL LOWER EXTREMITIES., ,PALPATION: POSITIVE FOR PAIN OVER L/S SPINE. POSITIVE FOR PAIN OVER L/S PARSPINALS. TRIGGER POINTS: OVER BILAT L4/5-L5/S1 LUMBR PARASPINALS.PAIN IN THIS REGION AGGREVATED WITH ROJM SPINE.. DIAGNOSTIC:MRI L/S SPINE -04/11/19. ASSESSMENTS MYALGIA, OTHER SITE - M79.18 (PRIMARY) SPONDYLOSIS WITHOUT MYELOPATHY OR RADICULOPATHY, LUMBAR REGION - M47.816 TREATMENT MYALGIA, OTHER SITE REFILL TIZANIDINE HCL TABLET, 4 MG, 1 TABLET NEEDED, ORALLY, Q8H PRN PAIN, 30 DAYS, 45, REFILLS 5 REFILL GABAPENTIN CAPSULE, 300 MG, 1 CAP, ORALLY, 1 AM AND PM, 30 DAYS, 60, REFILLS 5 MEDICATION: VALIUM TAB 10MG ORALLY (DIAZEPAM) (ORDERED FOR 09/28/2020) MEDICATION: OXYCODONE HCL TAB 10MG ORALLY (ORDERED FOR 09/28/2020) NOTES: TRIGGER POINT INJECTIONS BILATERAL LOW BACK. DISPOSITION & COMMUNICATION ELECTRONICALLY SIGNED BY AMPARO WICK ON 09/26/2020 AT 08:51 AM EDT DISCLAIMER : THIS IS A VISIT SUMMARY EXTRACTED FROM THE [employer] CHART. IT IS NOT A COPY OF THE [employer] PROGRESS NOTE. [place]
== END ==
LOC: M PAIN 14:45
PROVIDERS: ATTEND Nurse Practitioner Family
DX: M79.18 Myalgia, other site (principal); M47.816 Spondylosis without myelopathy or radiculopathy, lumbar region; K21.9 Gastro-esophageal reflux disease without esophagitis; E78.5 Hyperlipidemia, unspecified; E66.9 Obesity, unspecified; G47.30 Sleep apnea, unspecified; F17.210 Nicotine dependence, cigarettes, uncomplicated; Z79.899 Other long term (current) drug therapy; Z68.41 Body mass index [BMI] 40.0-44.9, adult

== ENCOUNTER 2021-04-26 14:05 | Emergency (ER) | payer MEDICARE, OTHER ==
[~2021-04-26] VITALS: Ht 180.3 cm; Wt 169.4 kg
--- OUTSIDE RECORDS SUMMARY | 2021-04-26 14:10 | CCD ---
Author Author [facility] Organization [facility] Address [address] [place] [address] Phone Care Team Providers Care Propulsion Engineer Name Role Phone Charlie JETER, Pili Hart MD, Phu Kate PP [phone] Reason for Referral No Reason for Referral Recorded Problems Includes: Active, inactive, and resolved Problems All Visits Onset Date - Time Resolved Date - Time Provider Co ndition Status Obesity Morbid 01/20/2018 - 12:00AM Phu gusman MD Active Note: Unchanged Obesity 06/16/2015 - 12:00AM Phu mayers MD Inactive Note: Unchanged Organic Sleep Apnea Obstructive Adult 08/18/2014 - 12:00AM Phu Hart MD Active Note: Unchanged - 15cm H20 Prediabetes 08/18/2013 - 12:00AM Radha CONCEPCIONP-B C Active Note: Unchanged Essential Hypertension 08/18/2013 - 12:00AM Delfino bennett RPA Active Note: Unchanged Hyperlipidemia 08/18/2013 - 12:00AM Delfino BILLINGS Active Note: Unchanged Nicotine Dependence 08/18/2013 - 12:00AM Phu Hart MD Active Note: Unchanged - LDCT 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 Dr Her Esophageal Reflux 11/25/2008 - 12:00AM Phu condon MD Active Lumbago 11/21/2007 - 12:00AM Phu mayers MD Active Plan of Treatment Pending Tests Order Diagnosis Results Due Ordering Provi annalee Lab CBC 08/03/20 Phu condon MD Lab CMP 08/03/20 Phu condon MD Lab Lipid Panel 08/03/20 Phu condon MD Lab PSA 08/03/20 Phu condon MD Care Programs Accountable Care Organizations [facility] Future Appointments Date Time Location Provider incident to previous visit- 02/01/2021 1:00PM [facility], [facility] Radha Cisse [facility]- Findings Encounter Date Education and counseling Age and gender specific counceling on preventative health discussed with the patient using USPTF and/or ACP guidlines on health maintenance and screening. We'll consider colonoscopy at next visit doesn't want to do anything this spring. Also declines low-dose CT scan. Reviewed with him importance of medication compliance and checking blood pressures on a regular basis. Smoking cessation also discussed. He has no intention of quitting her limiting cigarette smoking now blaming stress levels and political situation ANNUAL PE-followup with Phu Hart MD 08/03/2020 Following clinical practice guideline 2 018 ACC Guideline on Managment of Blood Cholesterol followup with Phu Hart MD 08/03/2020 Follow-Up Visit to Rescreen Blood Pressure within 1 ye ar followup with Phu Hart MD 08/03/2020 Ordered Transition in care, clinical summary provided Dr Felix followup with Phu Hart MD 04/19/2014 Ordered a comprehensive metabolic panel incident to pr evious visit- with Delfino Gray RPA 08/18/2013 Ordered a sleep study incident to previous visit- with Aletha Gray [facility] 08/18/2013 Ordered hemoglobin A1c incident to previous visit- with Kristina Gray [facility] 08/18/2013 Ordered serum lipoproteins incident to previous visit- with Delfino Gray [facility] 08/18/2013 Ordered abstinence from smoking [facility] preventativ e visit (first yr enrolled) with Phu Hart MD 02/12/2013 Saline nasal spray as needed. General mechanisms of infectious spread and hygiene reviewed with the patient. Sample of symbicort 80/4.5 provided with instruction to take 2 pbid until cough/wheeze resolves followup with Delfino Gray RPA 08/14/2012 Ordered serum lipoproteins and bmp prior to next visi t in 6 months followup with Delfino Gray RPA 08/14/2012 Education and counseling Age and gender specific counceling on preventative health discussed with the patient using USPTF and/or ACP guidlines on health maintenance and screening. He declines HIV testing. Will see back in 6 months and he needs to see an oral surgeon ANNUAL PE-followup exam/30 with Phu Hart MD 02/12/2012 Ordered avoid exposure to triggers ANNUAL PE-followup exam/30 with Phu Hart MD 02/12/2012 Ordered low fat diet ANNUAL PE-followup exam/30 with Phu Hart MD 02/12/2012 Ordered weight loss diet ANNUAL PE-followup exam/30 w ith Phu Hart MD 02/12/2012 Ordered weight loss diet followup with Phu balderas MD 02/22/2011 Urged weight loss starting with daily walking program despite chronic pain, and slow advance. Eat several small meals daily rather than one large meal. Better food choices. Return here for followup in 6 months ANNUAL PE-followup exam/30 with Delfino Gray RPA 08/25/2010 Ordered serum lipoproteins and bmp ANNUAL PE-followu p exam/30 with Delfino Gray RPA 08/25/2010 Ordered elevate head of bed ANNUAL PE-followup exam/30 with Phu Hart MD 11/25/2008 Ordered proton pump inhibitors as prescr ibed with treatment goals and side effects reviewed. Warning signs and sxs discussed with the patient who was instructed to notify the MD if they occur. Will see back in 3-4 months and I encouraged him to pursuit information and expertise on all his treatment options for his back ANNUAL PE-followup exam/30 with Phu Hart MD 11/25/2008 Assessments Includes: Assessments for all patient encounters Findings Encounter Date Routine adult history and physical (18 - 64 yrs) EDY Goodwin PE-followup exam/30 with Phu Hart MD 08/03/2020 Dependence on nicotine in cigarettes followup with Phu Vasques MD 08/03/2020 Essential hypercholesterolemia followup with Phu condon MD 08/03/2020 Essential hypertension followup with Phu Hart MD 08/03/2020 Morbid obesity due to excess calories followup with Phu Hart MD 08/03/2020 Organic adult obstructive sleep apnea followup with Phu Hart MD 08/03/2020 Routine adult history and physical (18 - 64 yrs) An nual Wellness SUBSEQUENT visi t(> 1yr since prev. with Phu Hart MD 08/03/2020 Essential hypertension which is well-controlled incide nt to previous visit- with Radha Cisse [facility]- 09/02/2019 Hyperlipidemia incident to previous visit- with Radha Fox [facility]- 09/02/2019 Lumbago - following with pain clinic incident to prev ious visit- with Radha Cisse [facility]- 09/02/2019 Morbid obesity incident to previous visit- with Radha Fox maria eugenia [facility]- 09/02/2019 Organic adult obstructive sleep apnea which is well-co ntrolled incident to previous visit- with Radha Cisse [facility]- 09/02/2019 Prediabetes incident to previous visit- with Radha Fox [facility]- 09/02/2019 Chronic reflux esophagitis Well controlled on current regimen followup with Phu Hart MD 01/22/2019 Essential hypertension Stable followup with Phu condon MD 01/22/2019 Lumbago Failing conservative treatment. Will refer f or pain treatment followup with Phu Hart MD 01/22/2019 Morbid obesity followup with Phu Hart MD 01/22/2019 Nicotine dependence Meets criteria for low-dose CT sc an followup with Phu Hart MD 01/22/2019 Organic adult obstructive sleep apnea Well controlled followup with Phu Hart MD 01/22/2019 Routine adult history and physical (18 - 64 yrs) [facility] An nual Wellness SUBSEQUENT visi t(> 1yr since prev. with Puh Hart MD 01/22/2019 Essential hypertension which is well-controlled follow up with Radha Cisse [facility]- 08/21/2018 Morbid obesity followup with Radha Cisse [facility]- 08/08 Organic adult obstructive sleep apnea - compliant with CPAP and benefiting from nightly use followup with Radha CHRISTENSEN-BC 08/21/2018 Chronic reflux esophagitis which is stable followup wi Phu Hart MD 01/17/2018 Essential hypertension which is louder followup with Phu Hart MD 01/17/2018 Mixed hyperlipoproteinemia followup with Phu rosales MD 01/17/2018 Morbid obesity followup with Phu Hart MD 01/17/2018 Routine senior citizen history and physical (65-80 yrs ) Annual Wellness SUBSEQUENT visi t(> 1yr since prev. with Phu Hart MD 01/17/2018 Essential hypertension which is stable followup with Phu Hart MD 05/16/2017 Mixed hyperlipoproteinemia followup with Phu rosales MD 05/16/2017 Morbid obesity followup with Phu Hart MD 05/16/2017 Organic adult obstructive sleep apnea which is well-co ntrolled followup with Phu Hart MD 05/16/2017 Essential hypertension which is well-controlled nursin g visit with Phu Hart MD 07/31/2016 Chronic reflux esophagitis which is well-controlled fo llowup with Phu Hart MD 06/19/2016 Essential hypertension which is inadequately controlle d followup with Phu Hart MD 06/19/2016 Nicotine dependence followup with Phu Hart MD 06/19/2016 Organic adult obstructive sleep apnea which is stable followup with Phu Hart MD 06/19/2016 Severe obesity followup with Phu Hart MD 06/19/2016 Routine adult history and physical (18 - 64 yrs) An nual Wellness SUBSEQUENT visi t(> 1yr since prev. with Phu Hart MD 06/19/2016 Chronic reflux esophagitis which is well-controlled fo llowup with Phu Hart MD 01/11/2016 Severe obesity followup with Phu Hart MD 01/11/2016 Essential hypertension - Controlled followup with Radha CHRISTENSEN-CARO 06/16/2015 Hyperlipidemia - Well controlled followup with Radha del cid [employer]-[facility] 06/16/2015 Obesity - Patient wishes to get appt [facility] weight loss surgeon to discuss his options. States he has called their office in the past and never followed through. We have given him the information for Dr. Betts office so that he can meet with the staff/ counselors and see if this is something that he would like to move forward with followup with Radha Fox [facility] 06/16/2015 Organic adult obstructive sleep apnea - maintains com pliance followup with Radha Fox [facility] 06/16/2015 Hearing loss - Will refer to hearing clinic Annual Wellness SUBSEQUENT visi t(> 1yr since prev. with Radha Fox [facility] 06/16/2015 Normal routine history and physical adult Annual We llness SUBSEQUENT visi t(> 1yr since prev. with Radha Fox [facility] 06/16/2015 Tobacco use - No desire to quit smoking . States it makes him gain more weight. Not interested in smoking cessation therapy at this time Annual Wellness SUBSEQUENT visi t(> 1yr since prev. with Radha Fox [facility] 06/16/2015 Benign essential hypertension followup with Phu lemus MD 12/16/2014 Essential hypertension followup with Phu Hart MD 12/16/2014 Organic adult obstructive sleep apnea followup with Phu Hart MD 12/16/2014 Essential hypertension which is stable followup with Phu Hart MD 08/19/2014 Sleep apnea which is improving followup with Phu condon MD 08/19/2014 Essential hypertension followup with Phu Hart MD 04/19/2014 Hyperlipidemia followup with Phu Hart MD 04/19/2014 Sleep apnea followup with Phu Hart MD 04/19/2014 Other medical exam for administrative purposes [employer] N[employer]um michael with Liz Hull RPA 04/12/2014 Essential hypertension followup with Delfino Gray RPA Hyperlipidemia followup with Delfino Gray RPA 12/21 Nicotine dependence followup with Delfino Gray RPA 12/21 Obesity followup with Delfino Gray RPA 12/21 Essential hypertension incident to previous visit- with Kristina Gray RPA 08/18/2013 Hyperlipidemia incident to previous visit- with Delfino Gray [facility] 08/18/2013 Nicotine dependence incident to previous visit- with Delfino Gray [facility] 08/18/2013 Prediabetes incident to previous visit- with Delfino Gray [facility] 08/18/2013 Probable sleep apnea incident to previous visit- with Moshe Gray RPA 08/18/2013 Chronic major depression [facility] preventative visi t (first yr enrolled) with Phu Hart MD 02/12/2013 Chronic reflux esophagitis which is stable [facility] preventative visit (first yr enrolled) with Phu Hart MD 02/12/2013 Lumbago [facility] preventative visi t (first yr enrolled) with Phu Hart MD 02/12/2013 Hyperlipidemia followup with Delfino Gray [facility] 08/14 Lumbago , chronic followup with Delfinoliss Gray [facility] 08/14 Nicotine dependence followup with Delfinoliss Gray [facility] 08/14 Reactive airway disease followup with Delfinoliss Gray [facility] 0 08/14/2012 Esophageal reflux which is stable ANNUAL PE-followup e xam/30 with Phu Hart MD 02/12/2012 Male erectile disorder due to physical condition ANNUA L PE-followup exam/30 with Phu Hart MD 02/12/2012 Sinusitis secondary to dental disease ANNUAL PE-follo wup exam/30 with Phu Hart MD 02/12/2012 Lumbago which is stable followup with Phu Hart MD 12/13/2011 Chronic reflux esophagitis followup with Phu rosales MD 02/22/2011 Mild hyperlipidemia followup with Phu Hart MD 02/22/2011 Rectal bleeding of unclear etiology followup with Phu Vasques MD 02/22/2011 Esophageal reflux ANNUAL PE-followup exam/30 with Delfino Gray RPA 08/25/2010 Hyperlipidemia ANNUAL PE-followup exam/30 with Delfino Gray RPA 08/25/2010 Chronic reflux esophagitis ANNUAL PE-followup exam/30 with Phu Hart MD 11/25/2008 Lumbago ANNUAL PE-followup exam/30 with Phu Hart MD 11/25/2008 Instructions Instructions not supported for this document typeNo Instructions Recorded Medical Equipment - Implanted Devices Includes: Current and historical DevicesNo Medical Equipment Recorded Medications Includes: Current and historical Medications Current Medications (continue as prescribed) traMADol HCl 50 MG Oral Tablet 04/20/2020 Provider: Radha Cisse [facility]- Diagnosis: Low back pain 1 PO QID prn MDD=4 Reference #: [id number] Bisoprolol Fumarate 5 MG Oral Tablet 04/18/2020 Pro vider: Radha Cisse [facility]- Diagnosis: TAKE 1 TABLET BY MOUTH EVERY DAY Celecoxib 200 MG Oral Capsule 02/18/2020 Provider: Phu Hart MD Diagnosis: 1 PO QD Lisinopril 10 MG Oral Tablet 11/17/2019 Provider: Phu Hart MD Diagnosis: Essential (primary) hypertension 1 PO QD Omeprazole 20 MG Oral Capsule Delayed Release 11/17/2019 Provider: Radha Cisse [facility] Diagnosis: 1 PO QD Pravastatin Sodium 40 MG Oral Tablet 11/17/2019 Pro vider: Radha Cisse [facility] Diagnosis: 1 PO QD Pristiq 50 MG Oral Tablet Extended Release 24 Hour 0 Provider: Radha Cisse [facility] Diagnosis: 1 PO QD Gabapentin 300 MG Oral Capsule 09/02/2019 Provider: Diagnosis: 1 cap po bid- Pain clinic. tiZANidine HCl 4 MG Oral Capsule 08/27/2019 Provide r: Diagnosis: 1 cap po hs prn. Viagra 100 MG OR TABS 04/19/2014 Provider: Phu Hart MD Diagnosis: LUMBAGO/low back ivy n Past Medications on file traMADol HCl 50 MG Oral Tablet 10/21/2019 - 04/20/2020 Provi annalee: Radha Cisse [facility]- Diagnosis: Low back pain 1 PO QID prn MDD=4 Reference #: [id number] Bisoprolol Fumarate 5 MG Oral Tablet 10/20/2019 - 04/18/2020 Provider: Radha Cisse [facility] Diagnosis: 1 PO QD CeleBREX 200 MG Oral Capsule 08/26/2019 - 02/18/2020 Provide r: Phu Hart MD Diagnosis: 1 PO QD traMADol HCl 50MG Oral Tablet 04/28/2019 - 10/21/2019 Provid er: Phu Hart MD Diagnosis: Low back pain 1 PO QID prn MDD=4 #: [id number] Bisoprolol Fumarate 5MG Oral Tablet 04/28/2019 - 09/02/2019 Provider: Phu Hart MD Diagnosis: 1 PO QD Bisoprolol Fumarate 5MG Oral Tablet 04/28/2019 - 01/22/2019 Provider: Phu Hart MD Diagnosis: 1 PO QD CeleBREX 200MG Oral Capsule 03/04/2019 - 08/26/2019 Provider : Phu Hart MD Diagnosis: 1 PO QD Lisinopril 10MG Oral Tablet 12/26/2018 - 09/02/2019 Provider : Phu Hart MD Diagnosis: Essential (primary) hypertension 1 PO QD Pravastatin Sodium 40MG Oral Tablet 12/26/2018 - 09/02/2019 Provider: Phu Hart MD Diagnosis: Other hyperlipidemia 1 PO QD traMADol HCl 50MG Oral Tablet 11/03/2018 - 04/28/2019 Provid er: Phu Hart MD Diagnosis: Low back pain 1 PO QID prn MDD=4 #: [id number] Omeprazole 20MG Oral Capsule Delayed Release 11/03/2018 - Provider: Phu Hart MD Diagnosis: 1 PO QD Pristiq 50MG Oral Tablet Extended Release 24 Hour 11/03/2018 - 09/02/2019 Provider: Phu Hart MD Diagnosis: 1 PO QD CeleBREX 200MG Oral Capsule 10/06/2018 - 01/22/2019 Provider : Radha Cisse [facility]- Diagnosis: 1 PO QD CeleBREX 200MG Oral Capsule 09/04/2018 - 08/21/2018 Provider : Radha Cisse [facility]- Diagnosis: 1 PO QD Bisoprolol Fumarate 5MG Oral Tablet 05/13/2018 - 04/28/2019 Provider: Phu Hart MD Diagnosis: 1 PO QD TraMADol HCl 50MG Oral Tablet 05/12/2018 - 11/03/2018 Provid er: Elsie Rivas RPA Diagnosis: Low back pain 1 PO QID prn MDD=4 #:[id number] TraMADol HCl 50MG Oral Tablet 04/14/2018 - 05/12/2018 Provid er: Elsie Rivas RPA Diagnosis: Low back pain 1 PO QID prn MDD=4 #:[id number] CeleBREX 200MG Oral Capsule 02/17/2018 - 08/21/2018 Provider : Phu Hart MD Diagnosis: 1 PO QD Pristiq 50MG Oral Tablet Extended Release 24 Hour 01/20/2018 - 11/03/2018 Provider: Phu Hart MD Diagnosis: 1 PO QD Lisinopril 10MG Oral Tablet 01/17/2018 - 01/17/2018 Provider : Phu Hart MD Diagnosis: Essential (primary) hypertension 1 PO QD Omeprazole 20MG Oral Capsule Delayed Release 01/15/2018 - Provider: Phu Hart MD Diagnosis: 1 PO QD CeleBREX 200MG Oral Capsule 01/15/2018 - 01/17/2018 Provider : Phu Hart MD Diagnosis: 1 PO QD Pravastatin Sodium 40MG Oral Tablet 01/15/2018 - 01/17/2018 Provider: Phu Hart MD Diagnosis: Other hyperlipidemia 1 PO QD CeleBREX 200MG Oral Capsule 10/21/2017 - 05/16/2017 Provider : Phu Hart MD Diagnosis: 1 PO QD TraMADol HCl 50MG Oral Tablet 09/19/2017 - 04/14/2018 Provid er: Phu Hart MD Diagnosis: Low back pain 1 PO QID prn MDD=4 #: [id number] Pristiq 50 MG OR TB24 08/20/2017 - 01/17/2018 Provider: Phu Hart MD Diagnosis: 1 PO QD Pravastatin Sodium 40MG Oral Tablet 06/20/2017 - 05/16/2017 Provider: Phu Hart MD Diagnosis: Other hyperlipidemia 1 PO QD Omeprazole 20MG Oral Capsule Delayed Release 06/20/2017 - Provider: Phu Hart MD Diagnosis: 1 PO QD Bisoprolol Fumarate 5MG Oral Tablet 05/23/2017 - 01/17/2018 Provider: Phu Hart MD Diagnosis: 1 PO QD CeleBREX 200 MG Capsule 04/29/2017 - 05/16/2017 Provider: Phu Hart MD Diagnosis: 1 PO QD TraMADol HCl 50 MG Tablet 04/26/2017 - 09/19/2017 Provider: Phu Hart MD Diagnosis: Low back pain 1 PO QID prn MDD=4 #: [id number] TraMADol HCl 50 MG Tablet 10/31/2016 - 04/26/2017 Provider: Radha Cisse [facility]- Diagnosis: Low back pain 1 PO QID prn MDD=4 Reference #: [id number] CeleBREX 200 MG Capsule 10/31/2016 - 04/26/2017 Provider: Radha Cisse [facility] Diagnosis: 1 PO QD Pristiq 50 MG Tablet Extended Release 24 Hour 09/06/2016 - 1 08/20/2015 Provider: Phu Hart MD Diagnosis: 1 PO QD Omeprazole 20 MG Capsule Delayed Release 06/19/2016 - 2016 Provider: Phu Hart MD Diagnosis: 1 PO QD Pravastatin Sodium 40 MG Tablet 06/19/2016 - 05/16/2017 Prov ider: Phu Hart MD Diagnosis: Other hyperlipidemia 1 PO QD Bisoprolol Fumarate 5 MG Tablet 06/19/2016 - 05/16/2017 Prov ider: Phu Hart MD Diagnosis: 1 PO QD CeleBREX 200 MG Capsule 05/07/2016 - 10/31/2016 Provider: Phu Hart MD Diagnosis: 1 PO QD TraMADol HCl 50 MG Tablet 05/04/2016 - 10/31/2016 Provider: Phu Hart MD Diagnosis: Low back pain 1 PO QID prn #: [id number] MDD=4 Omeprazole 20 MG Capsule Delayed Release 01/11/2016 - 2015 Provider: Phu Hart MD Diagnosis: 1 PO QD Pravastatin Sodium 40 MG Tablet 12/06/2015 - 06/19/2016 Prov ider: Radha Cisse [facility] Diagnosis: Other hyperlipidemia [address] of 20 mg TraMADol HCl 50 MG Tablet 11/07/2015 - 05/04/2016 Provider: Phu Hart MD Diagnosis: Low back pain 1 PO QID prn [id number] CeleBREX 200 MG Capsule 11/01/2015 - 01/11/2016 Provider: Phu Hart MD Diagnosis: 1 PO QD Pristiq 50 MG Tablet Extended Release 24 Hour 08/29/2015 - 1 08/20/2015 Provider: Phu Hart MD Diagnosis: 1 PO QD Omeprazole 20 MG Capsule, delayed-release 07/14/2015 - 01/10 Provider: Radha Cisse [facility] Diagnosis: 1 PO QD TraMADol HCl 50 MG Tablet 05/05/2015 - 11/07/2015 Provider: Phu Hart MD Diagnosis: Low back pain 1 PO QID prn #: [id number] CeleBREX 200 MG Capsule, conventional 04/18/2015 - 5 Provider: Phu Hart MD Diagnosis: 1 PO QD Omeprazole 20 MG Capsule, delayed-release 01/14/2015 - 06/16 Provider: Phu Hart MD Diagnosis: GERD 1 PO QD Pravastatin Sodium 40 MG Tablet 12/16/2014 - 06/16/2015 Prov ider: Phu Hart MD Diagnosis: Other hyperlipidemia [address] of 20 mg TraMADol HCl 50 MG Tablet 11/05/2014 - 05/05/2015 Provider: Phu Hart MD Diagnosis: LUMBAGO/low back ivy n as directed take 1 tablet q6 hours as needed for pain. #: [id number] CeleBREX 200 MG OR CAPS 10/25/2014 - 04/18/2015 Provider: Phu Hart MD Diagnosis: Pristiq 50 MG OR TB24 08/19/2014 - 06/16/2015 Provider: Phu Hart MD Diagnosis: Omeprazole 20 MG OR CPDR 07/05/2014 - 12/16/2014 Provider: Phu Hart MD Diagnosis: GERD traMADol HCl 50 MG OR TABS 05/06/2014 - 11/05/2014 Provider: Phu Hart MD Diagnosis: LUMBAGO/low back ivy n take 1 tablet q6 hours as needed for pain. #[id number] CeleBREX 200 MG OR CAPS 05/06/2014 - 04/19/2014 Provider: Phu Hart MD Diagnosis: LUMBAGO/low back ivy n approved through [employer] until 07/07/2099 CeleBREX 200 MG OR CAPS 05/06/2014 - 04/19/2014 Provider: Phu Hart MD Diagnosis: LUMBAGO/low back ivy n approved through [employer] until 07/07/2099 Lisinopril 10 MG OR TABS 04/19/2014 - 12/16/2014 Provider: Phu Hart MD Diagnosis: Pristiq 50 MG OR TB24 03/09/2014 - 08/19/2014 Provider: Delfino Gray RPA Diagnosis: Omeprazole 20 MG OR CPDR 01/13/2014 - 08/14/2012 Provider: Delfino Gray RPA Diagnosis: GERD Pravastatin Sodium 40 MG OR TABS 12/21/2013 - 12/16/2014 Pro vider: Delfino Gray RPA Diagnosis: Hyperlipidemia. NOS in place of 20 mg traMADol HCl 50 MG OR TABS 11/03/2013 - 04/19/2014 Provider: Phu Hart MD Diagnosis: LUMBAGO/low back ivy n take 1 tablet q6 hours as needed for pain. #[id number] CeleBREX 200 MG OR CAPS 11/03/2013 - 04/19/2014 Provider: Phu Hart MD Diagnosis: LUMBAGO/low back ivy n approved through [employer] until 07/07/2099 Pravastatin Sodium 20 MG OR TABS 08/18/2013 - 04/12/2014 Pro vider: Delfino Gray RPA Diagnosis: Hyperlipidemia. NOS Pristiq 50 MG OR TB24 08/06/2013 - 03/09/2014 Provider: Delfino Gray RPA Diagnosis: Omeprazole 20 MG OR CPDR 08/06/2013 - 08/14/2012 Provider: Delfino Gray RPA Diagnosis: GERD CeleBREX 200 MG OR CAPS 07/06/2013 - 12/13/2011 Provider: Phu Hart MD Diagnosis: LUMBAGO/low back ivy n approved through [employer] until 07/07/2099 traMADol HCl 50 MG OR TABS 04/27/2013 - 11/03/2013 Provider: Phu Hart MD Diagnosis: LUMBAGO/low back ivy n take 1 tablet q6 hours as needed for pain. #[id number] traMADol HCl 50 MG OR TABS 04/03/2013 - 04/03/2013 Provider: Phu Hart MD Diagnosis: LUMBAGO/low back ivy n take 1 tablet q6 hours as needed for pain. #[id number] traMADol HCl 50 MG OR TABS 02/12/2013 - 04/03/2013 Provider: Phu Hart MD Diagnosis: LUMBAGO/low back ivy n take 1 tablet q6 hours as needed for pain Viagra 100 MG OR TABS 02/12/2013 - 04/19/2014 Provider: Phu Hart MD Diagnosis: LUMBAGO/low back ivy n Pristiq 50 MG OR TB24 02/05/2013 - 08/14/2012 Provider: Delfino Gray RPA Diagnosis: Omeprazole 20 MG OR CPDR 02/05/2013 - 08/14/2012 Provider: Delfino Gray RPA Diagnosis: GERD traMADol HCl 50 MG OR TABS 01/26/2013 - 02/12/2013 Provider: Delfino Gray RPA Diagnosis: LUMBAGO/low back ivy n take 1 tablet q6 hours as needed for pain traMADol HCl 50 MG OR TABS 01/01/2013 - 01/26/2013 Provider: Delfino Gray RPA Diagnosis: LUMBAGO/low back ivy n take 1 tablet q6 hours as needed for pain CeleBREX 200 MG OR CAPS 01/01/2013 - 12/13/2011 Provider: Phu Hart MD Diagnosis: LUMBAGO/low back ivy n approved through [employer] until 07/07/2099 traMADol HCl 50 MG OR TABS 12/15/2012 - 08/14/2012 Provider: Delfino Gray RPA Diagnosis: LUMBAGO/low back ivy n take 1 tablet q6 hours as needed for pain traMADol HCl 50 MG OR TABS 12/15/2012 - 01/01/2013 Provider: Delfino Gray RPA Diagnosis: LUMBAGO/low back ivy n take 1 tablet q6 hours as needed for pain traMADol HCl 50 MG OR TABS 11/27/2012 - 08/14/2012 Provider: Delfino Gray RPA Diagnosis: LUMBAGO/low back ivy n take 1 tablet q6 hours as needed for pain traMADol HCl 50 MG OR TABS 11/07/2012 - 08/14/2012 Provider: Delfino Gray RPA Diagnosis: LUMBAGO/low back ivy n take 1 tablet q6 hours as needed for pain traMADol HCl 50 MG OR TABS 10/08/2012 - 08/14/2012 Provider: Delfino Gray RPA Diagnosis: LUMBAGO/low back ivy n take 1 tablet q6 hours as needed for pain traMADol HCl 50 MG OR TABS 09/23/2012 - 08/14/2012 Provider: Delfino Gray RPA Diagnosis: LUMBAGO/low back ivy n take 1 tablet q6 hours as needed for pain traMADol HCl 50 MG OR TABS 09/01/2012 - 08/14/2012 Provider: Delfino Gray RPA Diagnosis: LUMBAGO/low back ivy n take 1 tablet q6 hours as needed for pain Pristiq 50 MG OR TB24 08/14/2012 - 08/14/2012 Provider: Delfino Gray RPA Diagnosis: TIAGO BILLINGS# [id number] exp 09/18/12 Omeprazole 20 MG OR CPDR 08/14/2012 - 08/14/2012 Provider: Delfino Gray RPA Diagnosis: GERD TIAGO - PA [id number]- thru 09/18/12 traMADol HCl 50 MG OR TABS 08/14/2012 - 08/14/2012 Provider: Delfino Gray RPA Diagnosis: LUMBAGO/low back ivy n take 1 tablet q6 hours as needed for pain traMADol HCl ER (Biphasic) 300 MG OR TB24 08/12/2012 - 02/12 Provider: Phu Hart MD Diagnosis: LUMBAGO/low back ivy n Cyclobenzaprine HCl 10 MG OR TABS 07/10/2012 - 02/12/2013 Pr ovider: Phu Hart MD Diagnosis: LUMBAGO/low back ivy n use for spasm mostly in the evening CeleBREX 200 MG OR CAPS 07/10/2012 - 12/13/2011 Provider: Phu Hart MD Diagnosis: LUMBAGO/low back ivy n approved through [employer] until 07/07/2099 Cefuroxime Axetil 500 MG OR TABS 04/16/2012 - 02/12/2013 Pro vider: Delfino Gray RPA Diagnosis: Pristiq 50 MG OR TB24 03/21/2012 - 08/14/2012 Provider: Phu Hart MD Diagnosis: TIAGO BILLINGS# [id number] exp 09/18/12 Omeprazole 20 MG OR CPDR 03/21/2012 - 08/14/2012 Provider: Delfino Gray RPA Diagnosis: GERD TIAGO - PA [id number]- thru 09/18/12 Cefuroxime Axetil 500 MG OR TABS 02/12/2012 - 04/16/2012 Pro vider: Phu Hart MD Diagnosis: Viagra 50 MG OR TABS 02/12/2012 - 02/12/2013 Provider: Phu Hart MD Diagnosis: Cyclobenzaprine HCl 10 MG OR TABS 01/07/2012 - 01/07/2012 Pr ovider: Phu Hart MD Diagnosis: LUMBAGO/low back ivy n use for spasm mostly in the evening traMADol HCl ER (Biphasic) 300 MG OR TB24 12/13/2011 - 12/12 Provider: Phu Hart MD Diagnosis: LUMBAGO/low back ivy n Ryzolt 100 MG OR TB24 12/13/2011 - 12/13/2011 Provider: Phu Hart MD Diagnosis: LUMBAGO/low back ivy n unknown dose CeleBREX 200 MG OR CAPS 12/13/2011 - 12/13/2011 Provider: Phu Hart MD Diagnosis: LUMBAGO/low back ivy n Amrix 30 MG OR CP24 12/13/2011 - 01/07/2012 Provider: Phu Hart MD Diagnosis: LUMBAGO/low back ivy n unknown dose traMADol HCl ER (Biphasic) 300 MG OR TB24 12/13/2011 - 08/12 Provider: Phu Hart MD Diagnosis: LUMBAGO/low back ivy n Omeprazole 20 MG OR CPDR 09/17/2011 - 08/25/2010 Provider: Delfino Gray RPA Diagnosis: GERD TIAGO - PA #[id number] Pristiq 50 MG OR TB24 09/17/2011 - 05/25/2011 Provider: Phu Hart MD Diagnosis: TIAGO BILLINGS# [id number]- good thru 03/17/12 Omeprazole 20 MG OR CPDR 05/30/2011 - 08/25/2010 Provider: Delfino Gray RPA Diagnosis: GERD Omeprazole 20 MG OR CPDR 05/29/2011 - 08/25/2010 Provider: Delfino Gray RPA Diagnosis: GERD Pristiq 50 MG OR TB24 05/25/2011 - 05/25/2011 Provider: Phu Hart MD Diagnosis: CeleBREX 200 MG OR CAPS 08/25/2010 - 12/13/2011 Provider: Diagnosis: unknown dose Pristiq 100 MG OR TB24 08/25/2010 - 05/25/2011 Provider: Diagnosis: unknown dose Ryzolt 100 MG OR TB24 08/25/2010 - 12/13/2011 Provider: Eddie Victoria Diagnosis: unknown dose Omeprazole 20 MG OR CPDR 08/25/2010 - 08/25/2010 Provider: Delfino Gray RPA Diagnosis: GERD Appt made for f/u visit Amrix 15 MG OR CP24 08/25/2010 - 12/13/2011 Provider: Diagnosis: unknown dose Omeprazole 20 MG OR CPDR 08/17/2010 - 08/25/2010 Provider: Phu Hart MD Diagnosis: Appt made for f/u visit Omeprazole 20 MG OR CPDR 04/21/2010 - 11/25/2008 Provider: Phu Hart MD Diagnosis: Omeprazole 20 MG OR CPDR 11/15/2009 - 11/25/2008 Provider: Phu Hart MD Diagnosis: Omeprazole 20 MG OR CPDR 04/08/2009 - 11/25/2008 Provider: Phu Hart MD Diagnosis: Omeprazole 20 MG OR CPDR 11/25/2008 - 11/25/2008 Provider: Phu Hart MD Diagnosis: oxyCODONE-Acetaminophen 7.5-325 MG OR TABS 11/21/2007 - 08/08 Provider: Diagnosis: Dr Victoria Flexeril 10 MG OR TABS 11/21/2007 - 08/25/2010 Provider: Diagnosis: CeleBREX 200 MG OR CAPS 06/27/2006 - 11/21/2007 Provider: Phu Hart MD Diagnosis: take one tablet twice daily X 7 days and then one tablet chuy ly for 7 days. Omeprazole 40 MG OR CPDR 05/16/2006 - 11/21/2007 Provider: Phu Hart MD Diagnosis: ESOPHAGEAL REFLUX Medications Administered Includes: Administered Medications in patient's chartNo Administered Medications Recorded Vital Signs Includes: Vital Signs from 08/03/2019 through 08/03/2020 Vital Name 08/03/2020 02:19P 08/03/2020 01:46P 08/03/2020 01:45P 08/03/2020 01:44P 09/02/2019 01:19P Blood Pressure Sitting (mmHg) 138/82 165/81 165/81 165/81 120/82 Pulse Rate-Sitting (bpm) 66 66 66 72 Height (in) 68.5 68.5 68.5 68.5 Weight (lb) 378 378 378 370 Body Mass Index (kg/m2) 56.6 56.6 56.6 5 5.4 Body Surface Area (m2) 2.69 2.69 2.69 2. 67 Respiration Rate (breaths/min) 18 Note: MD recheck Results Includes: Results from 08/03/2019 through 08/03/2020 [facility] Doctor's In-house Laboratory Ordered by Radha CHRISTENSEN-CARO on 09/02/[address] [place] [address], [address] Collected: 09/02/2019 Reported: 09/02/2019 14:50 tel :[phone] ext. [phone] Albumin 4.3 g/dl (3.4-5.0) None Note: Responsible Observer: KM Alkaline Phos 69 IU/L (39-117) None Note: Responsible Observer: KM ALT 14 IU/L (4-40) None Note: Responsible Observer: KM AST 13 IU/L (4-37) None Note: Responsible Observer: KM Urea Nitrogen 8 mg/dl (6-20) None Note: Responsible Observer: KM Calcium 9.5 mg/dl (8.4-10.2) None Note: Responsible Observer: KM Chloride 105 mmol/L (96-108) None Note: Responsible Observer: KM CO2 27 mmol/L (23-31) None Note: Responsible Observer: KM Creatinine 0.8 mg/dl (0.5-1.2) None Note: Responsible Observer: KM EGFR - AfricanAm > 60 N/A (-) None Note: Responsible Observer: KM EGFR - Non AF AM > 60 N/A (-) None Note: Responsible Observer: KM Glucose 92 mg/dl (70-105) None Note: Responsible Observer: KM Potassium 5.5 mmol/L (3.2-5.4) H (High) Note: Responsible Observer: KM Sodium 142 mmol/L (133-145) None Note: Responsible Observer: KM Total Bilirubin 0.3 mg/dl (0.0-1.2) None Note: Responsible Observer: KM Total Protein 6.8 g/dl (6.0-8.0) None Note: Responsible Observer: KM [facility] ; All test results are final unless otherwise noted. Lipid Panel Doctor's In-house Laboratory Or[facility] by [facility] on 09/02/[address] [place] [address], [address] Collected: 09/02/2019 Reported: 09/02/2019 14:50 tel :[phone] ext. [phone] Cholesterol 194 mg/dl (135-200) None Note: Responsible Observer: KM Dir. LDL 123 mg/dl (50-150) None Note: Responsible Observer: KM HDL 45 mg/dl (35-55) None Note: Responsible Observer: KM Triglycerides 92 mg/dl (40-150) None Note: Responsible Observer: KM [facility] ; All test results are final unless otherwise noted. Hgba1c Doctor's In-house Laboratory Ordered by Radha Cisse [facility] on 09/02/[address] [place] [address], [address] Collected: 09/02/2019 Reported: 09/02/2019 14:50 tel :[phone] ext. 1500 Hgba1c 5.5 na (5.0-6.0) None Note: Responsible Observer: KM Reviewed by Radha Cisse [facility] on ; All test results are final unless otherwise noted. PSA Doctor's In-house Laboratory Ordered by Radha Cisse [facility] on 09/02/[address] [place] [address], [id number] Collected: 09/02/2019 Reported: 09/02/2019 14:50 tel :[phone] ext. 1500 PSA 0.64 I/L (0.0-4.0) None Note: Responsible Observer: KM Reviewed by Radha Cisse [facility] on ; All test results are final unless otherwise noted. History of Present Illness History of Present Illness not supported for this document typeNo History of Present Illness Recorded Social History Description Last Updated Current smoker 06/19/2016 Not wishing to stop smoking 06/19/2016 Psychosocial support is sufficient 06/16/2015 Not under stress at work 02/12/2013 Tobacco use 02/22/2011 Smoking status : Current everyday smoker 02/22/2011 Currently on disability 11/21/2007 Cigarette smoking 05/16/2006 Currently 05/16/2006 Procedures and Surgical History Includes: Procedures from 08/03/2019 through 08/03/2020 Procedures Code Diagnosis Performing Provider Service Location Service Date -Annual depression screening- 15 min. G0444 Encntr for general adult medical exam w/o abnormal findings, Encounter for screening for other disorder Phu Hart MD 08/03/2020 - subseq't annual wellness exam(1 yr after Initial) G0439 Encntr for general adult medical exam w/o abnormal findings Phu Hart MD 08/03/2020 PSA -Prostate Screening once/yr (Medicare) G0103 Encounter for screening for malignant neoplasm of prostate Radha Fox [facility], [facility] 09/02/2019 Fasting Lipid Profile 48836 Essential (primary ) hypertension, Mixed hyperlipidemia, Prediabetes Radha Fox [facility], [facility] 09/02/2019 CMP-Complete Metabolic Profile 59766 Essential (primary) hypertension, Mixed hyperlipidemia, Prediabetes Radha Fox [facility], [facility] 09/02/2019 HgbA1C 62437 Essential (primary) hypertension, Mixed hyperlipidemia, Prediabetes Radha Fox [facility], [facility] 09/02 Venipuncture (routine) 07604 Essential (primar y) hypertension, Mixed hyperlipidemia, Prediabetes Radha Fox [facility], [facility] 09/02/2019 Surgical History Last Updated History of shoulder surgery 11/21/2007 Medical History Includes: Medical History in patient's chart Description Last Updated Health care proxy not on file If no HCP in chart the pt was given our informational handout and FAQ sheet along with a blank HCP form to be brought back at the next visit. All questions answered 06/19/2016 Family History Includes: Family History in patient's chart Description Last Updated Mother in good health Alzheimers 02/12/2013 Brother in good health 05/16/2006 Father 05/16/2006 Sister in [facility] 05/16/2006 Review of Systems Review of Systems not supported for this document typeNo Review of Systems Recorded Mental Status Mental Status not supported for this document type Description No memory lapses or loss Functional Status Functional Status not supported for this document typeNo Functional Status Recorded Physical Exam Physical Exam not supported for this document typeNo Physical Exam Recorded Immunizations Includes: Immunizations in patient's chart Vaccine Dose # Date Site Reaction(s) Status Source Influenza, seasonal, injectable 1 05/16/2017 Left Arm Complete (Administered) [facility] Tdap (> 7 yrs) 1 06/16/2015 Left Arm Complete (Admi nistered) [facility] Allergies Includes: Active, inactive, and resolved AllergiesNo Known Allergies Encounters Includes: Encounters from 08/03/2019 through 08/03/2020 Encounter Provider Location Date Check-In Time Check-Out Time D iagnosis Annual Wellness SUBSEQUENT visi t(> 1yr since prev. Phu Hart MD [facility], [facility] 08/03/2020 12:51PM 2:28PM Routine History and Physical Adult (18 - 64 Yrs) followup Phu Hart MD [facility], [facility] 08/03/2020 12:51PM 2:28PM Organic Sleep Apnea Obstruct jairon Adult, Essential Hypertension, Hypercholesterolemia Essential, Obesity Morbid Due To Excess Calories, Nicotine Dependence Cigarettes ANNUAL PE-followup exam Phu Hart MD [facility] 08/03/2020 12:51PM 2:28PM Routine History and Physical Adult (18 - 64 Yrs) incident to previous visit- Radha Cisse [facility], [facility] 09/02/2019 1:06PM 1:49PM Essential Hypert ension, Hyperlipidemia, Prediabetes, Obesity Morbid, Organic Sleep Apnea Obstructive Adult, Lumbago [Patient Encounter] Phu Hart MD 08/26/2019 0 01/22/2019 11:25AM 01/22/2019 11:59PM Insurance Includes: Active Insurance Policies Plan Name Member ID Group # Subscriber Relationship Effective Da hilda 1 - [facility] [id number] Santhosh beltran Self 08/08/2019 - Unknown 2 - Medicaid [id number] Santhosh Liriano Self Advance Directives Includes: Current Advance DirectivesNo Advance Directives Recorded Health Concerns Includes: Active Health ConcernsNo Active Health Concerns Recorded Goals Includes: Active GoalsNo Active Goals Recorded Interventions Includes: Interventions for active GoalsNo Interventions Recorded Evaluations & Outcomes Includes: Evaluations & Outcomes for active GoalsNo Outcomes Recorded
--- OUTSIDE RECORDS SUMMARY | 2021-04-26 14:10 | CCD ---
Author Author [facility] Organization [facility] Address [address] [place] [address] Phone Care Team Providers [facility] Name Role Phone Charlie JETER, Pili Hart MD, Phu Kate PP [phone] Reason for Referral No Reason for Referral Recorded Problems Includes: Active, inactive, and resolved Problems All Visits Onset Date - Time Resolved Date - Time Provider Co ndition Status Obesity Morbid 01/20/2018 - 12:00AM Phu gusman MD Active Note: Unchanged Obesity 06/16/2015 - 12:00AM Radha Li Active Note: Unchanged Organic Sleep Apnea Obstructive Adult 08/18/2014 - 12:00AM Phu Hart MD Active Note: Unchanged - 15cm H20 Prediabetes 08/18/2013 - 12:00AM Radha Li Active Note: Unchanged Essential Hypertension 08/18/2013 - [...] PSA 08/03/20 Phu condon MD Care Programs [facility] Care [facility] Future Appointments Date Time Location Provider incident to previous visit- 02/01/2021 1:00PM [facility], [facility] Radha Cisse [facility]- Findings Encounter Date Following clinical practice guideline 2 018 ACC Guideline on Managment of Blood Cholesterol followup with Phu Hart MD 08/03/2020 Follow-Up Visit to Rescreen Blood Pressure within 1 ye ar followup with Phu Hart MD 08/03/2020 Ordered Transition in care, clinical summary provided Dr Felix followup with Phu Hart MD 04/19/2014 Ordered a comprehensive metabolic panel incident to pr evious visit- with Delfino Gray [facility] 08/18/2013 Ordered a sleep study incident to previous visit- with Aletha Gray [facility] 08/18/2013 Ordered hemoglobin A1c incident to previous visit- with Kristina Gray [facility] 08/18/2013 Ordered serum lipoproteins incident to previous visit- with Delfino Gray [facility] 08/18/2013 Ordered abstinence from smoking [facility] preventativ e visit (first yr enrolled) with Phu Hart MD 02/12/2013 Saline nasal spray as needed. General mechanisms of infectious spread and hygiene reviewed with the patient. Sample of symbicort 80/4.5 provided with instruction to take 2 pbid until cough/wheeze resolves followup with Delfino Gray [facility] 08/14/2012 Ordered serum lipoproteins and bmp prior [...] weight loss diet ANNUAL PE-followup exam/30 w jolly Phu Hart MD 02/12/2012 Ordered weight loss [...] for all patient encounters Findings Encounter Date Dependence on nicotine in cigarettes followup with [...] incide nt to previous visit- with Radha CHRISTENSEN-CARO 09/02/2019 Hyperlipidemia incident to previous visit- with Radha [facility]STENSEN-[facility] 09/02/2019 Lumbago - following with pain clinic incident to prev ious visit- with Radha Fox Betito [facility] 09/02/2019 Morbid obesity incident to previous visit- with Radha Fox [facility] 09/02/2019 Organic adult obstructive sleep apnea which is well-co ntrolled incident to previous visit- with Radha Fox maria eugenia [facility] 09/02/2019 Prediabetes incident to previous visit- with Radha Fox maria eugenia [facility] 09/02/2019 Chronic reflux esophagitis Well controlled on [...] 1yr since prev. with Phu Hart MD 01/22/2019 Essential hypertension which is well-controlled follow up with Radha Cisse [facility] 08/21/2018 Morbid obesity followup with Radha Cisse [facility] 08/08 Organic adult obstructive sleep apnea - compliant with CPAP and benefiting from nightly use followup with Radha Cisse [facility] 08/21/2018 Chronic reflux esophagitis which is stable followup wi th Phu Hart MD 01/17/2018 Essential hypertension which [...] and physical (18 - 64 yrs) [facility] Wellness SUBSEQUENT visi t(> 1yr since prev. with Phu Hart MD 06/19/2016 Chronic reflux esophagitis which is well-controlled fo llowup with Phu Hart MD 01/11/2016 Severe obesity followup with Phu Hart MD 01/11/2016 Essential hypertension - Controlled followup with Radha NOVAK 06/16/2015 Hyperlipidemia - Well controlled followup with Radha [facility] 06/16/2015 Obesity - Patient wishes to get appt [facility] weight loss surgeon to discuss his options. States he has called their office in the past and never followed through. We have given him the information for Dr. Betts office so that he can meet with the staff/ counselors and see if this is something that he would like to move forward with followup with Radha NOVAK 06/16/2015 Organic adult obstructive sleep apnea - maintains com pliance followup with Radha [facility]ENC[facility] 06/16/2015 Hearing loss - Will refer to hearing clinic Annual Wellness SUBSEQUENT visi t(> 1yr since prev. with Radha CH[facility]STENSENCARO 06/16/2015 Normal routine history and physical adult Annual We llness SUBSEQUENT visi t(> 1yr since prev. with Radha Cisse [facility] 06/16/2015 Tobacco use - No desire to quit smoking . States it makes him gain more weight. Not interested in smoking cessation therapy at this time Annual Wellness SUBSEQUENT visi t(> 1yr since prev. with Radha Fox Betito [facility] 06/16/2015 Benign essential hypertension followup with Phu [...] incident to previous visit- with Delfino Gray [facility] 08/18/2013 Nicotine dependence incident to previous visit- with Delfino Gray [facility] 08/18/2013 Prediabetes incident to previous visit- with Delfino Gray [facility] 08/18/2013 Probable sleep apnea incident to previous visit- with Moshe Gray [facility] 08/18/2013 Chronic major depression [facility] preventative visi t (first yr enrolled) with Phu Hart MD 02/12/2013 Chronic reflux esophagitis which is stable [facility] preventative visit (first yr enrolled) with Phu Hart MD 02/12/2013 Lumbago [facility] preventative visi t (first yr enrolled) with Phu Hart MD 02/12/2013 Hyperlipidemia followup with Delfino Gray [facility] 08/14 Lumbago , chronic followup with Delfino Gray [facility] 08/14 Nicotine dependence followup with Delfino Gray [facility] 08/14 Reactive airway disease followup with Delfino Gray [facility] 0 08/14/2012 Esophageal reflux which is [...] MG Oral Tablet 04/20/2020 Provider: Radha Cisse [facility] Diagnosis: Low back pain 1 PO QID prn MDD=4 Reference #: [id number] Bisoprolol Fumarate 5 MG Oral Tablet 04/18/2020 Pro vider: Radha Cisse [facility] Diagnosis: TAKE 1 TABLET BY MOUTH EVERY DAY Celecoxib 200 MG Oral Capsule 02/18/2020 Provider: Phu Hart MD Diagnosis: 1 PO QD Lisinopril 10 MG Oral Tablet 11/17/2019 Provider: Phu Hart MD Diagnosis: Essential (primary) hypertension 1 PO QD Omeprazole 20 MG Oral Capsule Delayed Release 11/17/2019 Provider: Radha Cisse [facility] Diagnosis: 1 PO QD Pravastatin Sodium 40 MG Oral Tablet 11/17/2019 Pro vider: Radha Cisse [facility] Diagnosis: 1 PO QD Pristiq 50 MG Oral Tablet Extended Release 24 Hour 0 Provider: Radha Cisse [facility] Diagnosis: 1 PO QD Gabapentin 300 MG [...] Tablet 10/21/2019 - 04/20/2020 Provi annalee: Radha Fox maria eugenia [facility] Diagnosis: Low back pain 1 PO QID prn MDD=4 Reference #: [id number] Bisoprolol Fumarate 5 MG Oral Tablet 10/20/2019 - 04/18/2020 Provider: Radha Cisse [facility] Diagnosis: 1 PO QD CeleBREX 200 MG Oral Capsule 08/26/2019 - 02/18/2020 Provide r: Phu Hart MD Diagnosis: 1 PO QD traMADol HCl 50MG Oral Tablet 04/28/2019 - 10/21/2019 Provid er: Phu Hart MD Diagnosis: Low back pain 1 PO QID prn MDD=4 #: [id number] Bisoprolol Fumarate 5MG Oral Tablet 04/28/2019 - [...] pain 1 PO QID prn MDD=4 #: [id number] Omeprazole 20MG Oral Capsule Delayed Release 11/03/2018 - Provider: Phu Hart MD Diagnosis: 1 PO QD Pristiq 50MG Oral Tablet Extended Release 24 Hour 11/03/2018 - 09/02/2019 Provider: Phu Hart MD Diagnosis: 1 PO QD CeleBREX 200MG Oral Capsule 10/06/2018 - 01/22/2019 Provider : Radha NOVAK Diagnosis: 1 PO QD CeleBREX 200MG Oral Capsule 09/04/2018 - 08/21/2018 Provider : Radha NOVAK Diagnosis: 1 PO QD Bisoprolol Fumarate 5MG Oral Tablet 05/13/2018 - 04/28/2019 Provider: Phu Hart MD Diagnosis: 1 PO QD TraMADol HCl 50MG Oral Tablet 05/12/2018 - 11/03/2018 Provid er: Elsie Rivas RPA Diagnosis: Low back pain 1 PO QID prn MDD=4 #:[id number] TraMADol HCl 50MG Oral Tablet 04/14/2018 - 05/12/2018 Provid er: Elsie Rivas RPA Diagnosis: Low back pain 1 PO QID prn MDD=4 #:[id number] CeleBREX 200MG Oral Capsule 02/17/2018 - 08/21/2018 [...] pain 1 PO QID prn MDD=4 #: [id number] Pristiq 50 MG OR TB24 08/20/2017 - [...] pain 1 PO QID prn MDD=4 #: [id number] TraMADol HCl 50 MG Tablet 10/31/2016 - 04/26/2017 Provider: Radha Cisse [facility] Diagnosis: Low back pain 1 PO QID prn MDD=4 Reference #: [id number] CeleBREX 200 MG Capsule 10/31/2016 - 04/26/2017 Provider: Radha Cisse [facility] Diagnosis: 1 PO QD Pristiq 50 MG [...] back pain 1 PO QID prn #: [id number] MDD=4 Omeprazole 20 MG Capsule Delayed Release 01/11/2016 - 2015 Provider: Phu Hart MD Diagnosis: 1 PO QD Pravastatin Sodium 40 MG Tablet 12/06/2015 - 06/19/2016 Prov ider: Radha Cisse [facility] Diagnosis: Other hyperlipidemia [address] of 20 mg TraMADol HCl 50 MG Tablet 11/07/2015 - 05/04/2016 Provider: Phu Hart MD Diagnosis: Low back pain 1 PO QID prn [id number] CeleBREX 200 MG Capsule 11/01/2015 - 01/11/2016 Provider: Phu Hart MD Diagnosis: 1 PO QD Pristiq 50 MG Tablet Extended Release 24 Hour 08/29/2015 - 1 08/20/2015 Provider: Phu Hart MD Diagnosis: 1 PO QD Omeprazole 20 MG Capsule, delayed-release 07/14/2015 - 01/10 Provider: Radha Cisse [facility] Diagnosis: 1 PO QD TraMADol HCl 50 MG Tablet 05/05/2015 - 11/07/2015 Provider: Phu Hart MD Diagnosis: Low back pain 1 PO QID prn #: [id number] CeleBREX 200 MG Capsule, conventional 04/18/2015 - [...] hours as needed for pain. #: 2 [id number] CeleBREX 200 MG OR CAPS 10/25/2014 - [...] tablet q6 hours as needed for pain. #[id number] CeleBREX 200 MG OR CAPS 05/06/2014 - [...] tablet q6 hours as needed for pain. #[id number] CeleBREX 200 MG OR CAPS 11/03/2013 - [...] tablet q6 hours as needed for pain. #[id number] traMADol HCl 50 MG OR TABS 04/03/2013 - 04/03/2013 Provider: Phu Hart MD Diagnosis: LUMBAGO/low back ivy n take 1 tablet q6 hours as needed for pain. #[id number] traMADol HCl 50 MG OR TABS 02/12/2013 [...] - 08/14/2012 Provider: Delfino Gray RPA Diagnosis: [facility] PA# [id number] exp 09/18/12 Omeprazole 20 MG OR CPDR 08/14/2012 - 08/14/2012 Provider: Delfino Gray RPA Diagnosis: GERD TIAGO - [place] [id number]- thru 09/18/12 traMADol HCl 50 MG OR [...] - 08/14/2012 Provider: Phu Hart MD Diagnosis: [facility]# [id number] exp 09/18/12 Omeprazole 20 MG OR CPDR 03/21/2012 - 08/14/2012 Provider: Delfino Gray RPA Diagnosis: [facility] [id number]- thru 09/18/12 Cefuroxime Axetil 500 MG OR [...] Gray RPA Diagnosis: GERD TIAGO - PA #[id number] Pristiq 50 MG OR TB24 09/17/2011 - 05/25/2011 Provider: Phu Hart MD Diagnosis: TI[facility]O PA# [id number]- good thru 03/17/12 Omeprazole 20 MG OR [...] Results Includes: Results from 08/03/2019 through 08/03/2020 CMP Doctor's In-house Laboratory Ordered by Radha CHRISTENSEN-CARO on 09/02/2019 [address] [place], [address] Collected: 09/02/2019 Reported: 09/02/2019 14:50 tel :[phone] ext. [phone] Albumin 4.3 g/dl (3.4-5.0) None [...] Note: Responsible Observer: KM Reviewed by Radha NOVAK on ; All test results are final unless otherwise noted. Lipid Panel [facility] Ordered by Radha NOVAK on 09/02/2019 [address] [place], [address] Collected: 09/02/2019 Reported: 09/02/2019 14:50 tel :[phone] ext. [phone] Cholesterol 194 mg/dl (135-200) None Note: Responsible Observer: KM Dir. LDL 123 mg/dl (50-150) None Note: Responsible Observer: KM HDL 45 mg/dl (35-55) None Note: Responsible Observer: KM Triglycerides 92 mg/dl (40-150) None Note: Responsible Observer: ANDREW Reviewed by Radha CHRISTENSENCARO on ; All test results are final unless otherwise noted. Hgba1c [facility]-house [facility] [place] [address], [address] Collected: 09/02/2019 Reported: 09/02/2019 14:50 tel :[phone] ext. [phone] Hgba1c 5.5 na (5.0-6.0) None Note: Responsible Observer: ANDREW Review[facility] on ; All test results are final unless otherwise noted. PSA [facility] on 09/02/[address] [place] [address], [address] Collected: 09/02/2019 Reported: 09/02/2019 14:50 tel :[phone] ext. [phone] PSA 0.64 I/L (0.0-4.0) None Note: Responsible Observer: ANDREW Review[facility] on ; All test results are [...] for malignant neoplasm of prostate Radha Fox [facility], [facility] 09/02/2019 Fasting Lipid Profile 56696 Essential (primary ) hypertension, Mixed hyperlipidemia, Prediabetes Radha Fox [facility], [facility] 09/02/2019 CMP-Complete Metabolic Profile 56117 Essential (primary) hypertension, Mixed hyperlipidemia, Prediabetes Radha Fox [facility], [facility] 09/02/2019 HgbA1C 54656 Essential (primary) hypertension, Mixed hyperlipidemia, Prediabetes Radha Fox [facility], [facility] 09/02 Venipuncture (routine) 28955 Essential (primar y) hypertension, Mixed hyperlipidemia, Prediabetes Radha Fox [facility], [facility] 09/02/2019 Surgical History Last Updated History [...] good health 05/16/2006 Father 05/16/2006 Sister in good health 05/16/2006 Review of Systems Review of Systems [...] injectable 1 05/16/2017 Left Arm Complete (Administered) [facility] Tdap (> 7 yrs) 1 06/16/2015 Left Arm Complete (Admi nistered) [facility] Allergies Includes: Active, inactive, and resolved AllergiesNo Known Allergies Encounters Includes: Encounters from 08/03/2019 through 08/03/2020 Encounter Provider Location Date Check-In Time Check-Out Time D if[facility]harosis Annual Wellness SUBSEQUENT visi t(> 1yr since prev. Phu Hart MD [facility], [facility] 08/03/2020 12:51PM 2:28PM Routine History and Physical Adult (18 - 64 Yrs) followup Phu Hart MD [facility], [facility] 08/03/2020 12:51PM 2:28PM Organic Sleep Apnea Obstruct jairon Adult, Essential Hypertension, Hypercholesterolemia Essential, Obesity Morbid Due To Excess Calories, Nicotine Dependence Cigarettes ANNUAL PE-followup Phu Hart MD [facility], [facility] 08/03/2020 12:51PM 2:28PM incident to previous visit- Radha Cisse [facility], [facility] 09/02/2019 1:06PM 1:49PM Essential Hypert ension, Hyperlipidemia, Prediabetes, Obesity Morbid, Organic Sleep Apnea Obstructive Adult, Lumbago [Patient Encounter] Phu Hart MD 08/26/2019 0 01/22/2019 11:25AM 01/22/2019 11:59PM Insurance Includes: Active Insurance Policies Plan Name Member ID Group # Subscriber Relationship Effective Da hilda 1 - [facility] [id number] Santhosh beltran Self 08/08/2019 - Unknown 2 - Medicaid [id number] Santhosh Liriano Self Advance Directives Includes: Current Advance DirectivesNo Advance Directives Recorded Health Concerns Includes: Active Health ConcernsNo Active Health Concerns Recorded Goals Includes: Active GoalsNo Active Goals Recorded Interventions Includes: Interventions for active GoalsNo Interventions Recorded Evaluations & Outcomes Includes: Evaluations & Outcomes for active GoalsNo Outcomes Recorded
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
--- OUTSIDE RECORDS SUMMARY | 2021-04-26 14:11 | CCD ---
Author Author [facility] Organization [facility] Address Unknown Phone Unavailable Support Name Relationship Address Phone [place] Next Of Kin [id number] [place] [address] DISABLED Next Of Kin Unknown Unavailable [place] [address] [place] [employer] Next Of Kin [address], [place] [address] [place] [address] [place] Next Of Kin [id number] [place] [facility] [address] [place] [address] Unavailable Re-disclosure Warning The records that you are about to access may contain information from federally-assisted alcohol or drug abuse programs. If such information is present, then the following federally mandated warning applies: This information has been disclosed to you from records protected by federal confidentiality rules (42 CFR part 2). The federal rules prohibit you from making any further disclosure of this information unless further disclosure is expressly permitted by the written consent of the person to whom it pertains or as otherwise permitted by 42 CFR part 2. A general authorization for the release of medical or other information is NOT sufficient for this purpose. The Federal rules restrict any use of the information to criminally investigate or prosecute any alcohol or drug abuse patient.The records that you are about to access may contain highly sensitive health information, the redisclosure of which is protected by Article 27-F of the [facility] Public Health law. If you continue you may have access to information: Regarding HIV / AIDS; Provided by facilities licensed or operated by the [facility] Office of Mental Health; or Provided by the [facility] Office for People With Developmental Disabilities. If such information is present, then the following [facility] mandated warning applies: This information has been disclosed to you from confidential records which are protected by state law. State law prohibits you from making any further disclosure of this information without the specific written consent of the person to whom it pertains, or as otherwise permitted by law. Any unauthorized further disclosure in violation of state law may result in a fine or mcc sentence or both. A general authorization for the release of medical or other information is NOT sufficient authorization for further disc losure. Encounters Encounter Providers Location Date Indications Data Source(s ) Unknown [address] [facility] [id number] 09/23/2020 12:00:00 AM EDT eCW1 ([facility]) Outpatient [address] [facility] [id number] 09/21/2020 12:00:00 AM EDT eCW1 ([facility]) Unknown [address] [facility] [id number] 09/14/2020 12:00:00 AM EST eCW1 ([facility]) Unknown [address] [facility] [id number] 08/23/2020 12:00:00 AM EST eCW1 ([facility]) Medications No Information Insurance Providers Payer name Policy type / Coverage type Policy ID Covered libertarian ID Covered libertarian's relationship to sandoval Policy Sandoval Plan Information [facility] Other 0 [id number] Self 0 MEDICARE [id number] SP [id number] C50 MEDICAID M UNAVAILABLE [id number] S UNAVAILA BLE MEDICARE C [id number] S [id number] C50 Medicaid [facility] Other 0 [id number] Self 0 MEDICAID [id number] SP [id number] Medicaid [facility] Other 0 [id number] Self 0 Medicare Part B [facility] Other 0 [id number] Self 0 Medicaid [facility] Other 0 [id number] Self 0 Medicare Part B [facility] Other 0 [id number] Self 0 Medicaid [facility] Other 0 [id number] Self 0 Medicare Part B [facility] Other 0 [id number] Self 0 Medicaid of [place] Other 0 [id number] Self 0 Medicare Part B of [facility] Other 0 [id number] S elf 0 [place] Other 0 [id number] Self 0 Medicare Part B of [facility] Other 0 [id number] S elf 0 Medicaid [place] Other 0 [id number] Self 0 Medicare Part B of [facility] Other 0 [id number] S elf [address] [facility] [id number] SP [id number] EMELINA#[phone] P OL#[phone] Problems, Conditions, and Diagnoses No Information Surgeries/Procedures No Information Results No Information Social History Code Duration Value Status Description Data Source(s ) Smoking 09/21/2020 12:00:00 AM EDT Current Smoker completed Curre nt Smoker eCW1 ([facility]) Smoking 09/21/2020 12:00:00 AM EDT Current Smoker completed Curre nt Smoker eCW1 ([facility]) Vital Signs ID Date Data Source UNK Name Value Range Interpretation Code Description Data Source(s) Body weight 308 [lb_av] 308 [lb_av] eCW1 ([facility]) Body height 70 [in_i] 70 [in_i] eCW1 ([facility] Body mass index (BMI) [Ratio] 44.19 kg/m2 44.19 kg/m2 eCW1 ([facility]) Heart rate 64 /min 64 /min eCW1 ([facility]) Respiratory rate 18 /min 18 /min eCW1 ([facility]) Body temperature 97.5 [degF] 97.5 [degF] eCW1 ( [facility]) Systolic blood pressure 190 mm[Hg] 190 mm[Hg] e CW1 ([facility]) Diastolic blood pressure 102 mm[Hg] 102 mm[Hg] eCW1 ([facility])
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
[2021-04-26 19:10] LABS: BASO % 0.6 % (0.0-1.0); EOS # 0.2 10^3/uL (0.0-0.5); EOS % 2.1 % (0.0-3.0); HEMATOCRIT 47.3 % (42.0-52.0); HEMOGLOBIN 16.3 g/dl (13.5-17.5); LYMPH # 2.2 10^3/uL (1.5-5.0); LYMPH % 30.8 % (24.0-44.0); MEAN CORPUSCULAR HEMOGLOBIN 32.7 pg (27.0-33.0); MEAN CORPUSCULAR HGB CONC 34.5 g/dl (32.0-36.5); MEAN CORPUSCULAR VOLUME 94.8 fl (80.0-96.0); MONO # 0.5 10^3/uL (0.0-0.8); MONO % 6.8 % (2.0-8.0); NEUTROPHILS # 4.3 10^3/uL (1.5-8.5); NEUTROPHILS % 59.4 % (36.0-66.0); PLATELET COUNT, AUTOMATED 261 10^3/uL (150-450); RED BLOOD COUNT 4.99 10^6/uL (4.30-6.10); WHITE BLOOD COUNT 7.2 10^3/uL (4.0-10.0)
[2021-04-26] MEDS ORDERED: BOOSTRIX/ADACEL VACCINE (DIPHTH/PERTUSS/ACELL/TETANUS) 0.5ML SYR IM ONE (19:35)
[2021-04-26 19:38] LABS: ALBUMIN 3.4 GM/DL (3.2-5.2); BILIRUBIN,DIRECT 0.1 MG/DL (0.0-0.2); BILIRUBIN,TOTAL 0.4 MG/DL (0.2-1.0); TOTAL PROTEIN 6.8 GM/DL (6.4-8.2)
--- OUTSIDE RECORDS SUMMARY | 2021-04-26 19:47 | CCD ---
Author Author [facility] Organization [facility] Address Unknown Phone Unavailable Support Name Relationship Address Phone [place] Next Of Kin [id number] [place] [id number] DISABLED Next Of Kin Unknown Unavailable [place] [address] [place] [employer] Next Of Kin [address] [facility] [address] [address] [place] [address] [place] H[place] Next Of Kin [id number] [place] [facility] [address] [place] [address] Unavailable Re-disclosure Warning The records that you [...] is protected by Article 27-F of the [facility] Public Health law. If you continue you may have access to information: Regarding HIV / AIDS; Provided by facilities licensed or operated by the [facility] Office of Mental Health; or Provided by the [facility] Office for People With Developmental Disabilities. If such information is present, then the following [facility] mandated warning applies: This information has [...] law may result in a fine or chcf sentence or both. A general authorization for the release of medical or other information is NOT sufficient authorization for further disc losure. Encounters Encounter Providers Location Date Indications Data Source(s ) Unknown [address] [facility] [id number] 09/23/2020 12:00:00 AM EDT eCW1 ([facility]) Outpatient [address] [facility] [id number] 09/21/2020 12:00:00 AM EDT eCW1 ([facility]) Unknown [address] [facility] [id number] 09/14/2020 12:00:00 AM EST eCW1 ([facility]) Unknown [address] [facility] [id number] 08/23/2020 12:00:00 AM EST eCW1 ([facility]) Medications No Information Insurance Providers Payer name Policy type / Coverage type Policy ID Covered constitution party ID Covered constitution party's relationship to sandoval Policy Sandoval Plan [facility] Other [facility] [id number] Self 0 [facility] [id number] SP [id number] MEDICARE [id number] SP [id number] MEDICAID M UNAVAILABLE [id number] S UNAVAILA BLE MEDICARE C [id number] S [id number] Medicaid [facility] Other 0 [id number] Self 0 MEDICAID [id number] Medicaid [facility] Other 0 [id number] Self 0 Medicare Part B [facility] Other 0 [id number] Self 0 Medicaid [facility] Other 0 [id number] Self 0 Medicare Part B [facility] Other 0 [id number] Self 0 Medicaid [facility] Other 0 [id number] Self 0 Medicare Part B of [facility] Other 0 [id number] Self 0 Medicaid of [place] Other 0 [id number] Self 0 Medicare Part B of [facility] Other 0 [id number] S elf 0 [place] Other 0 [id number] Self 0 Medicare Part B of [facility] Other 0 [id number] S elf 0 [place] Other 0 [id number] Self 0 Medicare Part B of [facility] Other 0 [id number] S elf 0 [employer] [id number] SP [id number] [phone] P OL#[phone] Problems, Conditions, and Diagnoses No Information Surgeries/Procedures No Information Results No Information Social History Code Duration Value Status Description Data Source(s ) Smoking 09/21/2020 12:00:00 AM EDT Current Smoker completed Curre nt Smoker eCW1 ([facility]) Smoking 09/21/2020 12:00:00 AM EDT Current Smoker completed Curre nt Smoker eCW1 ([facility]) Vital Signs ID Date Data Source UNK Name Value Range Interpretation Code Description Data Source(s) Body weight 308 [lb_av] 308 [lb_av] eCW1 ([facility]) Body height 70 [in_i] 70 [in_i] eCW1 ([facility]) Body mass index (BMI) [Ratio] 44.19 kg/m2 44.19 kg/m2 eCW1 ([facility]) Heart rate 64 /min 64 /min eCW1 ([facility]) Respiratory rate 18 /min 18 /min eCW1 ([facility]) Body temperature 97.5 [degF] 97.5 [degF] eCW1 ( [facility]) Systolic blood pressure 190 mm[Hg] 190 mm[Hg] e CW1 ([facility]) Diastolic blood pressure 102 mm[Hg] 102 mm[Hg] eCW1 ([facility])
[2021-04-26] MEDS ORDERED: ISOVUE-370 76% 100ML VIAL As Ordered ONE (19:59)
[2021-04-26 20:46] LABS: APPEARANCE, URINE HAZY (CLEAR); BACTERIA, URINE AUTO NEGATIVE (NEGATIVE); BILIRUBIN, URINE AUTO NEGATIVE (NEGATIVE); BLOOD, URINE BLOOD NEGATIVE (NEGATIVE); COLOR, URINE YELLOW (YELLOW); GLUCOSE, URINE (UA) AUTO NEGATIVE (NEGATIVE); KETONE, URINE AUTO NEGATIVE (NEGATIVE); LEUKOCYTE ESTERASE, URINE AUTO NEGATIVE (NEGATIVE); MUCUS, URINE MODERATE (NEGATIVE); NITRITE, URINE AUTO NEGATIVE (NEGATIVE); PROTEIN, URINE AUTO 2+ mg/dL (NEGATIVE); RBC, URINE AUTO 1 /HPF (0-3); SPECIFIC GRAVITY URINE AUTO 1.021 (1.002-1.035); SQUAMOUS EPITHELIAL CELL UR AU 6 /HPF (0-6); WBC, URINE AUTO 0 /HPF (0-3)
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
[2021-04-26 22:26] VITALS: BP 165/88
[2021-04-26] MEDS ORDERED: NEOSPORIN OINT 0.9 GM PKT TOP ONE (22:30)
== END 2021-04-26 22:56 | disposition home or self-care (01) ==
LOC: M ED 14:05
DX: S60.512A Abrasion of left hand, initial encounter (principal); S60.222A Contusion of left hand, initial encounter; S30.1XXA Contusion of abdominal wall, initial encounter; S46.911A Strain of unspecified muscle, fascia and tendon at shoulder and upper arm level, right arm, initial encounter; S63.502A Unspecified sprain of left wrist, initial encounter; S63.92XA Sprain of unspecified part of left wrist and hand, initial encounter; K76.89 Other specified diseases of liver; E27.8 Other specified disorders of adrenal gland; K80.20 Calculus of gallbladder without cholecystitis without obstruction; V43.52XA Car driver injured in collision with other type car in traffic accident, initial encounter; Y92.9 Unspecified place or not applicable; Y93.9 Activity, unspecified; Y99.9 Unspecified external cause status; I10 Essential (primary) hypertension; F17.200 Nicotine dependence, unspecified, uncomplicated; E66.9 Obesity, unspecified; Z79.899 Other long term (current) drug therapy
CPT/HCPCS: 73080; 73110; 73130; 74177; 80047; 80076; 81001; 85025; 90471; 90715; 99284; Q9967

== ENCOUNTER 2023-08-12 12:36 | Inpatient (IN) | payer MEDICAID, MEDICARE, OTHER ==
[~2023-08-12] VITALS: Ht 177.8 cm; Wt 161.7 kg
[~2023-08-12 12:36] MED LIST changes: +CELE0.09; -CELE1CAP9; -DESV50TA3; +DESV50TA3 PO; -TRAM50TA2; +TRAM50TA2 PO
[2023-08-12] MEDS ORDERED: LISI10TA24 PO (12:52)
[2023-08-12] MEDS ORDERED: CELE0.09 PO (12:52)
[2023-08-12] MEDS ORDERED: PRAV40TA2 PO (12:52)
[2023-08-12] MEDS ORDERED: BISO5TAB14 PO (12:52)
[2023-08-12] MEDS ORDERED: DESL1TAB3 PO (12:52)
[2023-08-12] MEDS ORDERED: OMEP10CASR PO (14:27)
[2023-08-12 14:43] LABS: BASO % 0.3 % (0.0-1.0); EOS # 0.1 10^3/uL (0.0-0.5); HEMATOCRIT 42.2 % (42.0-52.0); HEMOGLOBIN 14.4 g/dl (13.5-17.5); LYMPH # 1.2 10^3/uL (1.5-5.0); LYMPH % 11.9 % (24.0-44.0); MEAN CORPUSCULAR HGB CONC 34.1 g/dl (32.0-36.5); MEAN CORPUSCULAR VOLUME 96.6 fl (80.0-96.0); MONO % 9.1 % (2.0-8.0); NEUTROPHILS # 8.1 10^3/uL (1.5-8.5); NEUTROPHILS % 77.3 % (36.0-66.0); PLATELET COUNT, AUTOMATED 259 10^3/uL (150-450); RED BLOOD COUNT 4.37 10^6/uL (4.30-6.10); WHITE BLOOD COUNT 10.4 10^3/uL (4.0-10.0)
[2023-08-12 14:49] LABS: ERYTHROCYTE SEDIMENTATION RATE 71 mm/hr (0-20)
[2023-08-12 14:55] LABS: INR 1.21; PARTIAL THROMBOPLASTIN TIME 33.8 SECONDS (24.8-34.2); PROTHROMBIN TIME 14.9 SECONDS (12.5-14.5)
[2023-08-12] MEDS ORDERED: ISOVUE-370 76% 100ML VIAL As Ordered ONE (14:57)
[2023-08-12 15:15] LABS: CK-MB VALUE MASS < 1.0 NG/ML (<3.6)
[2023-08-12 15:16] LABS: CPK CREATINE PHOSPHOKINASE 83 U/L (46-171)
[2023-08-12 15:17] LABS: ALBUMIN 2.7 G/DL (3.2-5.2); ALKALINE PHOSPHATASE 92 U/L (46-116); ALT/SGPT 12 U/L (7.0-40); AST/SGOT 11 U/L (<34); BILIRUBIN,DIRECT 0.2 MG/DL (<0.4); BILIRUBIN,TOTAL 0.5 MG/DL (0.3-1.2); BLOOD UREA NITROGEN 24 MG/DL (9-23); CALCIUM LEVEL 8.5 MG/DL (8.3-10.6); CARBON DIOXIDE LEVEL 28 MMOL/L (20-31); CHLORIDE LEVEL 104 MMOL/L (98-107); CREATININE FOR GFR 1.34 MG/DL (0.70-1.30); GLOMERULAR FILTRATION RATE 57.9 (>49); GLUCOSE, FASTING 100 MG/DL (74-106); POTASSIUM SERUM 4.3 MMOL/L (3.5-5.1); SODIUM LEVEL 137 MMOL/L (136-145); TOTAL PROTEIN 6.5 G/DL (5.7-8.2)
[2023-08-12 15:24] LABS: PROCALCITONIN 0.09 ng/ml
[2023-08-12 15:34] LABS: RSV AMPLIFICATION NEGATIVE (NEGATIVE)
[2023-08-12] MEDS: PIPERACILLIN/TAZOBACTAM SOD 4.5 GM in D5W MINI-BAG PLUS 50 ML IV ONE (15:43)
[2023-08-12] MEDS: BOOSTRIX VACCINE (TETANUS/DIPHTH/ACEL. PERTUSSIS) 0.5ML SYR IM.IMMUN ONE (15:59)
[2023-08-12] MEDS ORDERED: HEPARIN DRIP 25,000 UNITS in IV 1 EA IV SCH (16:00)
[2023-08-12] MEDS ORDERED: HEPARIN SOD (PORCINE) 5000UNITS/ML 1ML VIAL/SYRINGE IV ONE (16:00)
[2023-08-12] MEDS ORDERED: HEPARIN SOD (PORCINE) 5000UNITS/ML 1ML VIAL/SYRINGE IV PRN ×2 (16:00→16:15)
[2023-08-12 16:25] LABS: CK-MB VALUE MASS < 1.0 NG/ML (<3.6)
[2023-08-12 16:26] LABS: CPK CREATINE PHOSPHOKINASE 90 U/L (46-171); MB/CK RELATIVE INDEX 1.11 (< OR =4)
[2023-08-12] MEDS: HEPARIN DRIP 25,000 UNITS in IV 1 EA IV SCH (16:36)
[2023-08-12] MEDS ORDERED: HOME MED LIST COMPLETE! XX SCH (16:50)
[2023-08-12] MEDS ORDERED: ALBUTEROL 90 MCG/ACT 8GM HFA INHALER INH PRN (17:10)
[2023-08-12] MEDS ORDERED: ACETAMINOPHEN TAB 650MG DOSE (2X325MG) PO PRN (17:10)
[2023-08-12] MEDS: oxyCODONE 5MG TAB PO PRN (19:32)
[2023-08-12] MEDS: NICOTINE 21MG/24HR 1 EA TRANSDERMAL TD SCH (19:32)
[2023-08-12 21:55] VITALS: BP 130/71; TEMP 99; O2SAT 96
[2023-08-13] VITALS: BP 146/60; TEMP 98.3; O2SAT 95
[2023-08-13 03:57] VITALS: BP 142/65; TEMP 97.5; O2SAT 94
[2023-08-13 05:17] LABS: BASO # 0.1 10^3/uL (0.0-0.2); BASO % 0.6 % (0.0-1.0); EOS # 0.3 10^3/uL (0.0-0.5); EOS % 2.7 % (0.0-3.0); HEMATOCRIT 36.8 % (42.0-52.0); HEMOGLOBIN 12.8 g/dl (13.5-17.5); LYMPH # 1.8 10^3/uL (1.5-5.0); LYMPH % 16.6 % (24.0-44.0); MEAN CORPUSCULAR HEMOGLOBIN 33.5 pg (27.0-33.0); MEAN CORPUSCULAR HGB CONC 34.8 g/dl (32.0-36.5); MEAN CORPUSCULAR VOLUME 96.3 fl (80.0-96.0); MONO % 9.4 % (2.0-8.0); NEUTROPHILS # 7.6 10^3/uL (1.5-8.5); NEUTROPHILS % 70.3 % (36.0-66.0); PLATELET COUNT, AUTOMATED 258 10^3/uL (150-450); RED BLOOD COUNT 3.82 10^6/uL (4.30-6.10); WHITE BLOOD COUNT 10.8 10^3/uL (4.0-10.0)
[2023-08-13 05:33] LABS: INR 1.25; PROTHROMBIN TIME 15.3 SECONDS (12.5-14.5)
[2023-08-13 05:34] LABS: PARTIAL THROMBOPLASTIN TIME 76.1 SECONDS (24.8-34.2)
[2023-08-13 05:51] LABS: BLOOD UREA NITROGEN 24 MG/DL (9-23); CARBON DIOXIDE LEVEL 29 MMOL/L (20-31); CHLORIDE LEVEL 104 MMOL/L (98-107); CREATININE FOR GFR 1.29 MG/DL (0.70-1.30); GLOMERULAR FILTRATION RATE > 60.0 (>49); GLUCOSE, FASTING 126 MG/DL (74-106); SODIUM LEVEL 139 MMOL/L (136-145)
[2023-08-13 07:35] VITALS: BP 136/75; TEMP 98; O2SAT 94
[2023-08-13 11:37] LABS: INR 1.25; PROTHROMBIN TIME 15.3 SECONDS (12.5-14.5)
[2023-08-13 11:38] LABS: PARTIAL THROMBOPLASTIN TIME 61.9 SECONDS (24.8-34.2)
[2023-08-13 11:42] VITALS: BP 137/74; TEMP 96.7; O2SAT 95
[2023-08-13] MEDS ORDERED: HEPA100PFS INJ (13:15)
[2023-08-13 15:49] VITALS: BP 135/67; TEMP 98; O2SAT 96
[2023-08-14 11:14] LABS: DRVV SCREEN 55.4 SECONDS
[2023-08-14 11:28] LABS: PTT LUPUS TYPE ANTICOAG SCREEN 1.32 (0-1.20)
[2023-08-14 11:35] LABS: DRVV CONFIRM 40.4 SECONDS; LUPUS CONFIRM RATIO 1.04
[2023-08-14 11:37] LABS: NORMALIZED RATIO 1.26 (0.00-1.20)
== END 2023-08-13 20:36 | disposition short-term general hospital (02) | DRG 299 ==
LOC: M ED 12:36 → M ED INP 16:09 → M PCU 21:50
PROVIDERS: ADMIT Internal Medicine Nephrology; ATTEND Internal Medicine Nephrology
DX: I82.431 Acute embolism and thrombosis of right popliteal vein (principal); J18.9 Pneumonia, unspecified organism; I26.09 Other pulmonary embolism with acute cor pulmonale; Z68.43 Body mass index [BMI] 50.0-59.9, adult; I82.411 Acute embolism and thrombosis of right femoral vein; I10 Essential (primary) hypertension; E66.01 Morbid (severe) obesity due to excess calories; G47.33 Obstructive sleep apnea (adult) (pediatric); Z91.119 Patient's noncompliance with dietary regimen due to unspecified reason; F17.200 Nicotine dependence, unspecified, uncomplicated; K80.20 Calculus of gallbladder without cholecystitis without obstruction; F32.A Depression, unspecified; Z79.899 Other long term (current) drug therapy